=== PATIENT | female | born 1940 | race Caucasian/White ===

== ENCOUNTER 2017-05-17 07:26 | Emergency (ER) | payer MEDICARE, BC ==
--- NOTE | 2017-05-17 07:43 | EDM.PDOC ---
ED HPI GENERAL MEDICAL PROBLEM - General Chief Complaint: General Stated Complaint: SOMETHING IN RIGHT CHEEK Time Seen by Provider: 05/17/17 07:43 Source of Information: Reports: Patient History Limitations: Reports: No Limitations - History of Present Illness INITIAL COMMENTS - FREE TEXT/NARRATIVE: 77 yo F who presents to the ER with right cheek discomfort with radiation to the right Jaw. Patient wears Dentures and was wondering if her symptoms have something to do with her Dentures. Symptoms have been ongoing for the past 3 days. No fever, chills. Rates pain as 4/10. Tried Tylenol without any relief. She is also planning to see her Dentist but presented to the ER for further evaluation. Duration: Day(s): (for the past 3 days), Getting Worse Location: Reports: Other (inner aspect of the right cheek) Quality: Reports: Ache Improves with: Reports: None Worsens with: Reports: None Associated Symptoms: Reports: No Other Symptoms Right Lower Tooth/Teeth Pain Score (Numeric/FACES): 2 - Related Data Allergies Allergy/AdvReac Type Severity Reaction Status Date / Time atorvastatin calcium AdvReac Pain Verified 05/17/17 07:42 [From Lipitor] Home Meds: Home Meds Folic Acid 1 mg PO DAILY 01/12/15 [History] Methotrexate Sodium [Methotrexate] 15 mg PO ASDIRECTED 01/12/15 [History] Omeprazole 40 mg PO DAILY 01/12/15 [History] Alendronate [Fosamax] 70 mg PO Q7D 01/31/15 [History] Ascorbic Acid [Vitamin C] 1,000 mg PO DAILY 01/31/15 [History] Aspirin [Halfprin] 325 mg PO DAILY 01/31/15 [History] Ca/D3/Mag#11/Zinc/Unit Educator/Cruz/Bor [Caltrate 600+D Plus Tablet] 1 tab PO DAILY 01/31 [History] Calcium Polycarbophil [Fiber Tabs] 1,250 mg PO DAILY 01/31/15 [History] Carvedilol [Coreg] 25 mg PO BID 01/31/15 [History] Cholecalciferol (Vitamin D3) [Vitamin D3] 2,000 unit PO DAILY 01/31/15 [History] Lactobacillus Acidophilus [Acidophilus] 1 tab PO DAILY 01/31/15 [History] Levothyroxine [Synthroid] 100 mcg PO DAILY 01/31/15 [History] Lutein 20 mg PO DAILY 01/31/15 [History] Magnesium Amino Acid Chelate [Magnesium] 100 mg PO DAILY 01/31/15 [History] Simvastatin [Zocor] 40 mg PO DAILY 01/31/15 [History] Acetaminophen [Tylenol Arthritis Pain] 650 mg PO DAILY 12/03/15 [History] Losartan [Cozaar] 25 mg PO DAILY 12/03/15 [History] Spironolactone [Aldactone] 12.5 mg PO DAILY 12/03/15 [History] Sucralfate 1 gm PO QID 12/03/15 [History] diphenhydrAMINE [Benadryl] 25 mg PO BEDTIME PRN 12/03/15 [History] Amoxicillin 500 mg PO TID #21 tab 05/17/17 [Rx] Hydrocodone/Acetaminophen [[place] 5-325] 1 tab PO Q6H PRN #20 tablet 05/17/17 [Rx ] Past Medical History HEENT History: Reports: Impaired Vision Cardiovascular History: Reports: Arrhythmia, Automatic Implantable Cardioverter Defibrillators, Heart Failure, High Cholesterol, Hypertension, Pacemaker, SOB on Exertion Gastrointestinal History: Reports: Gastritis, GERD Musculoskeletal History: Reports: Arthritis, Osteoarthritis - Past Surgical History HEENT Surgical History: Reports: Cataract Surgery Social & Family History - Tobacco Use Smoking Status *Q: Never Smoker Years of Tobacco use: 25 - Alcohol Use Days Per Week of Alcohol Use: 1 Number of Drinks Per Day: 1 Total Drinks Per Week: 1 - Recreational Drug Use Recreational Drug Use: No ED ROS GENERAL - Review of Systems Review Of Systems: ROS reveals no pertinent complaints other than HPI. ED EXAM, GENERAL - Physical Exam Exam: See Below Exam Limited By: No Limitations General Appearance: Alert, WD/WN, No Apparent Distress Eye Exam: Bilateral Eye: EOMI Ears: Normal External Exam, Normal Canal, Hearing Grossly Normal, Normal TMs Nose: Normal Inspection, Normal Mucosa Throat/Mouth: Normal Lips, Normal Teeth, Normal Gums, Other (sore noticed on the inner aspect of the right cheek --clinically infected) Head: Atraumatic, Normocephalic Neck: Normal Inspection, Supple, Non-Tender, Full Range of Motion Respiratory/Chest: No Respiratory Distress, Lungs Clear, Normal Breath Sounds, No Accessory Muscle Use Cardiovascular: Normal Peripheral Pulses, Regular Rate, Rhythm, No Edema, No JVD , No Murmur GI/Abdominal: Normal Bowel Sounds, Soft, Non-Tender, No Organomegaly (Female) Exam: Normal External Exam, Normal Speculum Exam Rectal (Female) Exam: Normal Exam Back Exam: Normal Inspection, Full Range of Motion Extremities: Normal Inspection, Normal Range of Motion, Non-Tender, No Pedal Edema Neurological: Alert, Oriented, CN II-XII Intact, Normal Cognition, Normal Gait Skin Exam: Warm, Dry, Intact, Normal Color, No Rash Course - Vital Signs Last Recorded V/S: Last Vital Signs Temp 36.8 C 05/17/17 07:30 Pulse 72 05/17/17 07:30 Resp 20 05/17/17 07:30 BP 154/72 H 05/17/17 07:30 Pulse Ox 98 05/17/17 07:30 Departure - Departure Time of Disposition: 08:28 Disposition: Home, Self-Care 01 Condition: Good Clinical Impression: Mucositis - Discharge Information Prescriptions: Amoxicillin 500 mg PO TID #21 tab Hydrocodone/Acetaminophen [Mascot 5-325] 1 tab PO Q6H PRN #20 tablet PRN Reason: Pain Instructions: Oral Mucositis Referrals: Carrie Mcghee, HOUSING MANAGEMENT REPRESENTATIVE [Primary Care Provider] - Forms: ED Department Discharge Additional Instructions: Make appointment to see Dentist Follow with PCP Return if symptoms worsen Call your Physician or Return to Emergency Department if: * Your condition worsens in any way. * You develop fever greater than 100.4. * You have vomitting that does not stop with medications. * You have pain that is not controlled with medications.
[2017-05-17 07:48] VITALS: BP 154/72
[2017-05-17] MEDS ORDERED: Acetaminophen/HYDROcodone 325-5 MG Tab PO ONE (08:05)
[2017-05-17] MEDS ORDERED: Amoxicillin 500 MG Cap PO ONE (08:05)
== END 2017-05-17 08:10 | disposition home or self-care (01) ==
LOC: FB.ED 07:26
DX: K12.30 Oral mucositis (ulcerative), unspecified (principal); I10 Essential (primary) hypertension; K21.9 Gastro-esophageal reflux disease without esophagitis; H54.7 Unspecified visual loss; Z88.9 Allergy status to unspecified drugs, medicaments and biological substances; Z98.890 Other specified postprocedural states; Z79.82 Long term (current) use of aspirin; Z79.899 Other long term (current) drug therapy; Z95.0 Presence of cardiac pacemaker; Z98.49 Cataract extraction status, unspecified eye
CPT/HCPCS: 99282; A9270; 99283

== ENCOUNTER 2018-08-02 09:45 | Emergency (ER) | payer MEDICARE, BC ==
[2018-08-02 10:15] VITALS: BP 144/80
--- NOTE | 2018-08-02 10:44 | EDM.PDOC ---
ED HPI GENERAL MEDICAL PROBLEM - General Chief Complaint: Neuro Symptoms/Deficits Stated Complaint: LT EAR PAIN Time Seen by Provider: 08/02/18 10:42 Source of Information: Reports: Patient History Limitations: Reports: No Limitations - History of Present Illness INITIAL COMMENTS - FREE TEXT/NARRATIVE: 78-year-old female complaining of dizziness. She describes episodes of vertigo, spinning, associated decreased hearing and plugging both ears; especially the left. This started about 2 days ago insidiously. Denies any headache, nausea, vomiting. Neither does she have any chest pain or shortness of breath. About 6 weeks ago,she had a tube placed on the left ear Onset: Gradual - Related Data Allergies Allergy/AdvReac Type Severity Reaction Status Date / Time atorvastatin calcium AdvReac Pain Verified 08/02/18 10:10 [From Lipitor] Home Meds: Home Meds Folic Acid 1 mg PO DAILY 01/12/15 [History] Methotrexate Sodium [Methotrexate] 15 mg PO ASDIRECTED 01/12/15 [History] Omeprazole 40 mg PO DAILY 01/12/15 [History] Alendronate [Fosamax] 70 mg PO Q7D 01/31/15 [History] Ascorbic Acid [Vitamin C] 1,000 mg PO MOWEFR 01/31/15 [History] Aspirin [Halfprin] 81 mg PO DAILY 01/31/15 [History] Ca/D3/Mag#11/Zinc/Apparel Trimmings Sales Representative/Cruz/Bor [Caltrate 600+D Plus Tablet] 1 tab PO DAILY 01/31 [History] Calcium Polycarbophil [Fiber Tabs] 1,250 mg PO DAILY 01/31/15 [History] Lactobacillus Acidophilus [Acidophilus] 1 tab PO DAILY 01/31/15 [History] Levothyroxine [Synthroid] 100 mcg PO DAILY 01/31/15 [History] Lutein 20 mg PO DAILY 01/31/15 [History] Magnesium Amino Acid Chelate [Magnesium] 100 mg PO DAILY 01/31/15 [History] Simvastatin [Zocor] 40 mg PO DAILY 01/31/15 [History] Acetaminophen [Tylenol Arthritis Pain] 650 mg PO DAILY 12/03/15 [History] Losartan [Cozaar] 100 mg PO DAILY 12/03/15 [History] Spironolactone [Aldactone] 12.5 mg PO DAILY 12/03/15 [History] Sucralfate 1 gm PO QID 12/03/15 [History] diphenhydrAMINE [Benadryl] 25 mg PO BEDTIME PRN 12/03/15 [History] Hydrocodone/Acetaminophen [[place] 5-325] 1 tab PO Q6H PRN #20 tablet 05/17/17 [Rx ] Calcium Citrate/Vitamin D3 [Calcium Cit 200-Vit D3 250 Tab] 2 tab PO BID [History] Carvedilol 25 mg PO BID 08/02/18 [History] Cholestyramine (With Sugar) [Questran Powder] 4 gm PO 12 08/02/18 [History] Denosumab [Xgeva] 60 mg IDERM .Q6 MONTHS 08/02/18 [History] Dicyclomine [Bentyl] 10 mg PO BID PRN 08/02/18 [History] Fluticasone Propionate [Flonase] 2 puff JOSE CARLOS DAILY 08/02/18 [History] Furosemide 20 mg PO DAILY 08/02/18 [History] Hypromellose [Genteal] 1 drop EYEBOTH BID 08/02/18 [History] Past Medical History HEENT History: Reports: Impaired Vision Cardiovascular History: Reports: Arrhythmia, Automatic Implantable Cardioverter Defibrillators, Heart Failure, High Cholesterol, Hypertension, Pacemaker, SOB on Exertion Gastrointestinal History: Reports: Gastritis, GERD, Irritable Bowel Syndrome TONSORIAL ARTIST History: Reports: Other TONSORIAL ARTIST History: Musculoskeletal History: Reports: Arthritis, Fracture, Osteoarthritis, RA Other Musculoskeletal History: hx R hip Neurological History: Reports: Vertigo Endocrine/Metabolic History: Reports: Hypothyroidism - Infectious Disease History Infectious Disease History: Reports: MRSA - Past Surgical History HEENT Surgical History: Reports: Cataract Surgery Other HEENT Surgeries/Procedures: bilat cataract Cardiovascular Surgical History: Reports: Pacer GI Surgical History: Reports: Appendectomy, Cholecystectomy, Colonoscopy Female Surgical History: Reports: Section, Hysterectomy, Salpingo- Oophorectomy Other Female Surgeries/Procedures: CS x 3 Musculoskeletal Surgical History: Reports: Hip Replacement Other Musculoskeletal Surgeries/Procedures:: R hip replacement Social & Family History - Family History Family Medical History: Noncontributory - Tobacco Use Smoking Status *Q: Former Smoker Years of Tobacco use: 5 Used Tobacco, but Quit: Yes Month/Year Tobacco Last Used: 1986 - Caffeine Use Caffeine Use: Reports: Coffee, Tea - Recreational Drug Use Recreational Drug Use: No ED ROS GENERAL - Review of Systems Review Of Systems: ROS reveals no pertinent complaints other than HPI. ED EXAM, DIZZINESS - Physical Exam Exam: See Below Exam Limited By: No Limitations General Appearance: Alert Nystagmus: No: worsens with head to L Ears: Normal External Exam, TM Obscured by Cerumen, Other (Tympanostomy tube noted in the right eardrum). No: Auricular Erythema, Canal Blood, Canal Swelling Nose: Normal Inspection Throat/Mouth: Normal Inspection Head Exam: Atraumatic Vertigo: reversible Respiratory/Chest: No Respiratory Distress Cardiovascular: Normal Peripheral Pulses, Regular Rate, Rhythm Course - Vital Signs Text/Narrative:: I was able to remove some of the wax that was obscuring the TM. Last Recorded V/S: Last Vital Signs Temp 97.5 F 08/02/18 10:02 Pulse 62 08/02/18 10:02 Resp 18 08/02/18 10:02 BP 144/80 H 08/02/18 10:02 Pulse Ox 100 08/02/18 10:02 - Orders/Labs/Meds Orders: Active Orders 24 hr Category Date Time Status EKG Documentation Completion [RC] ASDIRECTED Care 08/02/18 10:41 Active EKG Documentation Completion [RC] ASDIRECTED Care 08/02/18 10:42 Active EKG 12 Lead [EK] Routine Ther 08/02/18 10:41 Ordered Labs: Laboratory Tests 08/02/18 08/02/18 08/02/18 Range/Units 10:45 10:45 10:45 WBC 6.1 (4.5-12.0) X10-3/uL RBC 4.04 (3.23-5.20) x10(6)uL Hgb 12.7 (11.5-15.5) g/dL Hct 38.5 (30.0-51.3) % MCV 95.1 (80-96) fL MCH 31.3 (27.7-33.6) pg MCHC 32.9 (32.2-35.4) g/dL RDW 14.5 (11.5-15.5) % Plt Count 239 (125-369) X10(3)uL MPV 8.0 (7.4-10.4) fL Neut % (Auto) 66.2 (46-82) % Lymph % (Auto) 21.6 (13-37) % Butts % (Auto) 7.0 (4-12) % Eos % (Auto) 5 (1.0-5.0) % Baso % (Auto) 1 (0-2) % Neut # (Auto) 4.1 (1.6-8.3) # Lymph # (Auto) 1.3 (0.6-5.0) # Butts # (Auto) 0.4 (0.0-1.3) # Eos # (Auto) 0.3 (0.0-0.8) # Baso # (Auto) 0.0 (0.0-0.2) # Sodium 138 (135-145) mmol/L Potassium 4.3 (3.5-5.3) mmol/L Chloride 101 (100-110) mmol/L Carbon Dioxide 31 (21-32) mmol/L BUN 12 (7-18) mg/dL Creatinine 0.8 (0.55-1.02) mg/dL Est Cr Clr Drug Dosing 43.73 mL/min Estimated GFR (MDRD) > 60 (>60) BUN/Creatinine Ratio 15.0 (9-20) Glucose 90 (80-116) mg/dL Calcium 8.9 (8.6-10.2) mg/dL Troponin I < 0.017 L (<0.017-0.056) ng/mL Departure - Departure Time of Disposition: 11:21 Disposition: Home, Self-Care 01 Clinical Impression: Benign paroxysmal positional vertigo of right ear - Discharge Information Referrals: Carrie Mcghee, CONSERVATION SCIENCE TEACHER [Primary Care Provider] - Forms: ED Department Discharge - Problem List & Annotations (1) Benign paroxysmal positional vertigo of right ear SNOMED Code(s): 091758151 Code(s): H81.11 - BENIGN PAROXYSMAL VERTIGO, RIGHT EAR Status: Acute Current Visit: Yes - Problem List Review Problem List Initiated/Reviewed/Updated: Yes - My Orders Last 24 Hours: My Active Orders 08/02/18 10:41 EKG Documentation Completion [RC] ASDIRECTED EKG 12 Lead [EK] Routine 08/02/18 10:42 EKG Documentation Completion [RC] ASDIRECTED - Assessment/Plan Last 24 Hours: My Active Orders 08/02/18 10:41 EKG Documentation Completion [RC] ASDIRECTED EKG 12 Lead [EK] Routine 08/02/18 10:42 EKG Documentation Completion [RC] ASDIRECTED Plan: Discharge the patient home with some meclizine 25 mg, 3 times a day when necessary. Discussed side effects. Advised to see her ENT specialist this week. Return to the ED with any worsening symptoms
[2018-08-02] MEDS ORDERED: Meclizine 25 MG Tab PO ONE (11:26)
== END 2018-08-02 11:35 | disposition home or self-care (01) ==
LOC: FB.ED 09:45
DX: H81.11 Benign paroxysmal vertigo, right ear (principal); I10 Essential (primary) hypertension; K21.9 Gastro-esophageal reflux disease without esophagitis; E03.9 Hypothyroidism, unspecified; Z87.891 Personal history of nicotine dependence; Z79.899 Other long term (current) drug therapy; Z79.82 Long term (current) use of aspirin; Z88.8 Allergy status to other drugs, medicaments and biological substances
CPT/HCPCS: 36415; 80048; 84484; 85025; 99283; A9270-GY

== ENCOUNTER 2020-05-26 16:32 | Inpatient (IN) | payer MEDICARE, BC ==
[2020-05-26] MEDS ORDERED: Morphine 10 MG/ML SDV IM ONE (16:37)
[2020-05-26] MEDS ORDERED: hydrOXYzine HCl 50 MG/ML SDV IM ONE (16:37)
[2020-05-26] MEDS ORDERED: oxyCODONE 5 MG Tab PO PRN (17:24)
--- NOTE | 2020-05-26 17:28 | EDM.PDOC ---
ED HPI GENERAL MEDICAL PROBLEM - General Chief Complaint: Lower Extremity Injury/Pain Stated Complaint: PAIN IN TAILBONE AREA Time Seen by Provider: 05/26/20 17:10 Source of Information: Reports: Patient History Limitations: Reports: No Limitations - History of Present Illness INITIAL COMMENTS - FREE TEXT/NARRATIVE: Patient complains of lower back pain,left side for a few hours.No radiation.Severe,to the point that she cannot move. Tylenol does not help. She fell 10 days ago. left hip Pain Score (Numeric/FACES): 9 - Related Data Allergies Allergy/AdvReac Type Severity Reaction Status Date / Time atorvastatin calcium AdvReac Pain Verified 10/24/18 08:04 [From Lipitor] Home Meds: Home Meds Azelastine [Astelin Nasal Soln] 1 inhalation JOSE CARLOS BID 05/26/20 [History] Calcium Carb/Magnesium Oxid/D3 [Calcium Magnesium + D] 1 each PO BID 05/26/20 [History] Denosumab [Prolia] 60 mg .XX ASDIRECTED 05/26/20 [History] Fluticasone Propionate [Flonase] 2 spray NS DAILY 05/26/20 [History] Folic Acid 1 tab PO DAILY 05/26/20 [History] Furosemide [Lasix] 20 mg PO DAILY 05/26/20 [History] Lactobac/Bifidobac/Glob Pr Con [Ultra Amarilis Plus Capsule] 1 each PO BID 05/26/20 [History] Levothyroxine 75 mcg PO ACBREAKFAST 05/26/20 [History] Loperamide [Imodium AD] 2 mg PO BEDTIME 05/26/20 [History] Losartan [Cozaar] 100 mg PO DAILY 05/26/20 [History] Lutein 20 mg PO DAILY 05/26/20 [History] Methotrexate 2.5 mg PO Q7D 05/26/20 [History] amLODIPine [Norvasc] 2.5 mg PO DAILY 05/26/20 [History] carvediloL [Coreg] 25 mg PO BID 05/26/20 [History] Past Medical History HEENT History: Reports: Impaired Vision Cardiovascular History: Reports: Arrhythmia, Automatic Implantable Cardioverter Defibrillators, Heart Failure, High Cholesterol, Hypertension, Pacemaker, SOB on Exertion Gastrointestinal History: Reports: Diverticulosis, Gastritis, GERD, Irritable Bowel Syndrome COUNTY RECORDS MANAGEMENT OFFICER History: Reports: Other COUNTY RECORDS MANAGEMENT OFFICER History: Musculoskeletal History: Reports: Arthritis, Fracture, Osteoarthritis, RA Other Musculoskeletal History: hx R hip Neurological History: Reports: Vertigo Endocrine/Metabolic History: Reports: Hypothyroidism - Infectious Disease History Infectious Disease History: Reports: MRSA - Past Surgical History HEENT Surgical History: Reports: Cataract Surgery Other HEENT Surgeries/Procedures: bilat cataract Cardiovascular Surgical History: Reports: AICD, Pacer GI Surgical History: Reports: Appendectomy, Cholecystectomy, Colonoscopy Female Surgical History: Reports: Section, Hysterectomy, Salpingo- Oophorectomy Other Female Surgeries/Procedures: CS x 3 Musculoskeletal Surgical History: Reports: Hip Replacement Other Musculoskeletal Surgeries/Procedures:: R hip replacement Social & Family History - Family History Family Medical History: Noncontributory - Tobacco Use Smoking Status *Q: Former Smoker Used Tobacco, but Quit: Yes Month/Year Tobacco Last Used: 1989 - Caffeine Use Caffeine Use: Reports: Coffee Review of Systems - Review of Systems Review Of Systems: Comprehensive ROS is negative, except as noted in HPI. ED EXAM, GENERAL - Physical Exam Exam: See Below Exam Limited By: No Limitations General Appearance: Alert Head: Atraumatic Neck: Normal Inspection Cardiovascular: Normal Peripheral Pulses Back Exam: Normal Inspection, Muscle Spasm, Paraspinal Tenderness. No: Vertebral Tenderness Extremities: Normal Inspection Course - Vital Signs Last Recorded V/S: Last Vital Signs Temp 97.9 F 05/26/20 18:11 Pulse 64 05/26/20 18:11 Resp 18 05/26/20 18:11 BP 139/60 05/26/20 18:11 Pulse Ox 94 L 05/26/20 18:11 - Orders/Labs/Meds Orders: Medication Orders Cyclobenzaprine HCl (Flexeril) 10 mg PO BEDTIME KEITH Naproxen (Naprosyn) 500 mg PO BID [facility] Last Admin: 05/26/20 18:46 Dose: 500 mg Documented by: NAS Oxycodone HCl (Oxycodone) 5 mg PO Q4H PRN PRN Reason: Breakthrough Pain Meds: Medications Generic Name Dose Route Start Last Admin Trade Name Freq PRN Reason Stop Dose Admin Cyclobenzaprine HCl 10 mg 05/26/20 21:00 Flexeril PO BEDTIME KEITH Naproxen 500 mg 05/26/20 17:30 05/26/20 18:46 Naprosyn PO 500 mg BID KEITH Administration Oxycodone HCl 5 mg 05/26/20 17:24 Oxycodone PO Q4H PRN Breakthrough Pain Discontinued Medications Generic Name Dose Route Start Last Admin Trade Name Idania PRN Reason Stop Dose Admin Hydroxyzine HCl 50 mg 05/26/20 16:37 05/26/20 16:47 Vistaril IM 05/26/20 16:38 50 mg ONETIME ONE Administration Morphine Sulfate 10 mg 05/26/20 16:37 05/26/20 16:47 Morphine IM 05/26/20 16:38 10 mg ONETIME ONE Administration Departure - Departure Time of Disposition: 20:08 Disposition: Refer to Observation Condition: Good Clinical Impression: Muscle spasms of neck - Discharge Information Sepsis Event Note (ED) - Evaluation Sepsis Screening Result: No Definite Risk - Focused Exam Vital Signs: Vital Signs Temp Pulse Resp BP Pulse Ox 05/26/20 16:32 98.1 F 73 17 126/102 H 99 - Problem List & Annotations (1) Back muscle spasm SNOMED Code(s): 853397761 Code(s): M62.830 - MUSCLE SPASM OF BACK Status: Acute Current Visit: Yes - Problem List Review Problem List Initiated/Reviewed/Updated: Yes - Assessment/Plan Plan: Admit for pain control. PT. She lives alone
[2020-05-26] MEDS: Naproxen 500 MG Tab PO SCH (18:46)
[2020-05-26] MEDS ORDERED: Denosumab 60 MG/1 ML Syringe SCH (20:30)
[2020-05-26] MEDS ORDERED: Cyclobenzaprine 10 MG Tab PO SCH (21:00)
[2020-05-26] MEDS: Loperamide 2 MG Cap PO SCH (21:34)
[2020-05-26] MEDS: Carvedilol 25 MG Tab PO SCH (21:34)
[2020-05-27] MEDS ORDERED: Folic Acid 1 MG Tab PO SCH (09:00)
[2020-05-27] MEDS ORDERED: Furosemide 20 MG Tab PO SCH (09:00)
[2020-05-27] MEDS: Levothyroxine 75 MCG Tab PO SCH (11:00)
[2020-05-27] MEDS: Carvedilol 25 MG Tab PO SCH ×2 (11:00→17:00)
[2020-05-27] MEDS: Enoxaparin 30 MG/0.3 ML Syringe SUBCUT SCH (11:01)
[2020-05-27] MEDS: Naproxen 500 MG Tab PO SCH ×2 (11:01→21:31)
[2020-05-27] MEDS: Fluticasone Propionate Nasal Spray 16 GM Bottle NAS SCH (11:05)
--- NOTE | 2020-05-27 11:29 | PN ---
DATE SEEN: 05/27/2020 SUBJECTIVE: Hip and pelvis . Nayely Barnes is a young lady, 80 years of age, admitted yesterday through the ER. Radiographs were evaluated by Radiology in [place], was found not to have any obvious left hip pathology, but evidence of an acetabular fracture on the right side. I spoke with Dr. Nicole, Orthopedics, [facility], recommended 6 weeks nonweightbearing, and conservative treatment. Re-x-ray in few weeks' time, look for changes in anatomy. She was informed of these findings and needs. PHYSICAL EXAMINATION: VITAL SIGNS: 36.5, 68, 123/70, 87 mean, 18, 92%. GENERAL: Appears comfortable. CHEST: Clear all lung to. HEART: No ectopy or murmur. ABDOMEN: Benign. PELVIS: Moderately tender over pelvic motion. ASSESSMENT: Right acetabular fracture. PLAN: PT referral on Thursday, nonweightbearing 6 weeks' duration. Home care and treatment options. /[id number] KAT/KIRA
[2020-05-27] MEDS: amLODIPine 2.5 MG Tab PO SCH (11:31)
[2020-05-27] MEDS: Losartan 100 MG Tab PO SCH (11:31)
[2020-05-27] MEDS: Carboxymethylcellulose/Hypromellose Ophth Gel 15 ML Bottle EYEBOTH SCH ×2 (11:34→21:31)
[2020-05-27] MEDS: [UNRECOGNIZED DRUG - OTHER] PO SCH (11:54)
[2020-05-27] MEDS: AZELASTINE NAS SCH (11:54)
[2020-05-27] MEDS: Acetaminophen 500 MG Tab PO SCH ×2 (13:17→21:31)
[2020-05-27] MEDS: Loperamide 2 MG Cap PO SCH (21:31)
[2020-05-28] MEDS: Levothyroxine 75 MCG Tab PO SCH (08:13)
[2020-05-28] MEDS: Carvedilol 25 MG Tab PO SCH ×2 (08:43→17:15)
[2020-05-28] MEDS: Losartan 100 MG Tab PO SCH (08:45)
[2020-05-28] MEDS: Acetaminophen 500 MG Tab PO SCH ×3 (08:45→21:04)
[2020-05-28] MEDS: Naproxen 500 MG Tab PO SCH ×2 (08:45→21:03)
[2020-05-28] MEDS: Fluticasone Propionate Nasal Spray 16 GM Bottle NAS SCH (08:46)
[2020-05-28] MEDS ORDERED: Methotrexate 2.5 MG Tab PO SCH (09:00)
[2020-05-28] MEDS: amLODIPine 2.5 MG Tab PO SCH (09:24)
[2020-05-28] MEDS: traMADol 50 MG Tab PO PRN ×2 (09:27→21:04)
[2020-05-28] MEDS: Enoxaparin 30 MG/0.3 ML Syringe SUBCUT SCH (09:29)
[2020-05-28] MEDS: Calcium Carbonate 500 MG Tablet PO SCH ×2 (11:17→21:03)
--- NOTE | 2020-05-28 14:12 | HP ---
ADMISSION DATE: 05/27/2020 REASON FOR VISIT: Acute hip and back pain. HISTORY OF PRESENT ILLNESS: Nayely Barnes is an 80-year-old female, lives independently, was admitted through [facility]. She had taken a fall a few days prior. She had lost her balance in her garage. She has had some other small minimal falls. She presented with complicated pelvic pain. Was seen in the emergency room, suspicion for fracture was noted, radiographs revealed evidence of an acetabular fracture, minimal displacement, right hip. Admitted to hospital for treatment, intervention, and pain control. MEDICATIONS: At the time of admission include: 1. Simvastatin 20 mg p.o. at bedtime, hyperlipidemia. 2. Methotrexate 15 mg q.7 days. 3. Flonase 2 puffs each nostril once daily, allergic rhinitis. 4. Carvedilol 25 mg 1 p.o. b.i.d., blood pressure/heart. 5. Lutein 20 mg 1 p.o. daily nutrition. 6. Losartan 100 mg 1 p.o. daily, blood pressure. 7. Imodium A-D 2 mg at bedtime, diarrhea. 8. Levothyroxine 75 mcg, hypothyroidism. 9. Amarilis Plus 1 capsule b.i.d. 10.Furosemide 20 mg 1 p.o. daily, edema. 11.Folic acid 1 mg 1 p.o. daily, nutrition. 12.Prolia 60 mg q.6 months, osteoporosis. 13.Calcium plus vitamin D 1 p.o. b.i.d. 14.Amlodipine 2.5 mg daily. 15.Astelin nasal spray 1 puff b.i.d. both nostrils. ALLERGIES: To Lipitor with pain. PAST MEDICAL HISTORY: Significant for previous right hip arthroplasty for degenerative joint disease. She has had a previous pacemaker and defibrillator placed 2004, and initial hip replacement 1999, revision 2017. Dr. Dubois, initial provider. Dr. Lemons, second provider. She had an appendectomy, cholecystectomy, 3 sections, herniorrhaphy, hysterectomy, and bilateral oophorectomy. Chronic illnesses include heart disease, hypertension, and hyperlipidemia. SOCIAL HISTORY: for 18 years. at 71 of heart disease. Lives independently. Worked at [employer]. Three children, 2 boys, 1 daughter, 5 grandchildren, 5 great grandchildren. Quit smoking in 1999, no vaping, no chewing, no alcohol of consequence, no illicit drug use. REVIEW OF SYSTEMS: CONSTITUTIONAL: Feeling otherwise generally well. EYES: Sees well. EARS: Hears well, some difficulty in crowds. OROPHARYNX: Intact dentition. GASTROINTESTINAL: Bowels have been fine. No blood in stools. GENITOURINARY: Good voiding pattern. No blood in urine. CARDIOVASCULAR: Denies chest pain, palpitations, syncope. RESPIRATORY: No chronic cough, wheeze, or congestion. ORTHOPEDIC: Please see HPI. SKIN: No open sores or lesions. ENDOCRINE: No excessive thirst or urination. ALLERGIES: Noted. PHYSICAL EXAMINATION: VITAL SIGNS: 1.6 m, 56 kg, 68, 123/70, 87 mean, 94, respirations 18. GENERAL: Elderly female, cooperative, conversant, gives good history. HEENT: Funduscopic benign. Bright TMs. Clear nasal discharge. Mouth and oropharynx clear. NECK: Benign. Thyroid small. CHEST: On auscultation, clear in all lung to. HEART: Occasional ectopy, soft murmur. Normal S1, S2. ABDOMEN: Benign, well-healed surgical scars. No hepatosplenomegaly. Midline aorta small. GENITOURINARY AND RECTAL: Deferred. EXTREMITIES: Well perfused. Palpable tenderness over both sides of her pelvis. Surgical scar noted, right side. LABORATORY STUDIES: Hemoglobin 10.2, white count 7,700, sedimentation rate 63, platelets 249,000. Electrolytes; glucose 131, calcium 8.5, GFR greater than 60. Urinalysis noted 2+ ketones, small leukocytes, 0 to 5 white cells. Radiographs pending. ASSESSMENT: Hip and pelvis pain. PLAN: We will have radiologist review findings and concerns. Pain control, intervention accordingly. /[id number] KAT/KIRA
[2020-05-28] MEDS: Loperamide 2 MG Cap PO SCH (21:03)
[2020-05-28] MEDS: Carboxymethylcellulose Sodium 1% Ophth Gel 15 ML Bottle EYEBOTH SCH (21:03)
--- NOTE | 2020-05-28 23:03 | PN ---
DATE SEEN: 05/28/2020 SUBJECTIVE: Nayely Barnes is a delightful 80-year-old female admitted with recent fall. She sustained an acetabular fracture, undisplaced periprosthesis right hip. Surprising little pain in that location. Spoke with Dr. Nicole, Orthopedics, [place]. 6 weeks nonweightbearing. Plans accordingly. PT will see her today. Discharge planning with services at home under consideration. Feels that the Tylenol on board provides reasonable but not full control of pain. OBJECTIVE: VITAL SIGNS: 36.3, 129/72, 18, 95%, blood pressure 126/68. GENERAL: Appears comfortable. NECK: Benign. Thyroid small. CHEST: On auscultation, clear in all lung to. HEART: No ectopy. Soft murmur. ABDOMEN: Benign. Some pelvic pain on palpation. ASSESSMENT: Acetabular fracture, right hip periprosthesis. PLAN: PT on board. Treatment in place. Discharge planning or swing bed alternative. /[id number] KAT/KIRA
[2020-05-29] MEDS: traMADol 50 MG Tab PO PRN ×2 (02:32→08:40)
[2020-05-29] MEDS: Levothyroxine 75 MCG Tab PO SCH (06:41)
[2020-05-29] MEDS: Carvedilol 25 MG Tab PO SCH ×2 (08:29→18:10)
[2020-05-29] MEDS: Naproxen 500 MG Tab PO SCH ×2 (08:30→21:26)
[2020-05-29] MEDS: Fluticasone Propionate Nasal Spray 16 GM Bottle NAS SCH (08:31)
[2020-05-29] MEDS: Calcium Carbonate 500 MG Tablet PO SCH ×2 (08:31→21:26)
[2020-05-29] MEDS: amLODIPine 2.5 MG Tab PO SCH (08:33)
[2020-05-29] MEDS: Acetaminophen 500 MG Tab PO SCH ×3 (08:34→21:26)
[2020-05-29] MEDS: Losartan 100 MG Tab PO SCH (08:34)
[2020-05-29] MEDS: Enoxaparin 30 MG/0.3 ML Syringe SUBCUT SCH (10:06)
[2020-05-29] MEDS: traMADol 50 MG Tab PO SCH ×2 (13:29→21:26)
[2020-05-29] MEDS: Loperamide 2 MG Cap PO SCH (21:26)
[2020-05-29] MEDS: Carboxymethylcellulose Sodium 1% Ophth Gel 15 ML Bottle EYEBOTH SCH (21:27)
[2020-05-30] MEDS: Levothyroxine 75 MCG Tab PO SCH (07:31)
[2020-05-30] MEDS: Carvedilol 25 MG Tab PO SCH (07:32)
[2020-05-30 07:33] VITALS: BP 155/78; PULSE 62
[2020-05-30] MEDS ORDERED: Acetaminophen 500 MG Tab PO SCH (09:00)
[2020-05-30] MEDS: traMADol 50 MG Tab PO SCH (09:30)
[2020-05-30] MEDS: Calcium Carbonate 500 MG Tablet PO SCH (09:34)
[2020-05-30] MEDS: amLODIPine 2.5 MG Tab PO SCH (09:34)
[2020-05-30] MEDS: Acetaminophen 500 MG Tab PO SCH (09:34)
[2020-05-30] MEDS: Losartan 100 MG Tab PO SCH (09:35)
[2020-05-30] MEDS: Fluticasone Propionate Nasal Spray 16 GM Bottle NAS SCH (09:36)
[2020-05-30] MEDS: Enoxaparin 30 MG/0.3 ML Syringe SUBCUT SCH (09:37)
--- NOTE | 2020-05-30 11:24 | PN ---
DATE SEEN: 05/30/2020 SUBJECTIVE: Nayely Barnes is an 80-year-old female admitted with right hip periprosthesis, intra-acetabular fracture, right hip. CT confirmed these findings. Primary issues are left side intractable pain by report. Severe in nature. Known SI disease. An epidural steroid injection remotely in the past, 5 to 8 years ago, with some benefit. The pain is a problematic issue. Nonweightbearing for 6 weeks. PHYSICAL EXAMINATION: GENERAL: Weepy, unsettled at best. VITAL SIGNS: 36.3, 62, 155/78, 18, and 96%. CHEST: Clear in all lung to. HEART: Without ectopy or murmur. ABDOMEN: Benign. ASSESSMENT: 1. Tenderness over the hip and pelvis girdle. 2. Intra-articular acetabular fracture, right hip. 3. Complicated left hip and back pain. PLAN: PT to focus on her left side sciatica and intervention. We will speak with Anesthesia about an epidural steroid injection as a consideration. /[id number] /KIRA
[2020-05-30] MEDS ORDERED: predniSONE 20 MG Tab PO SCH (12:00)
--- NOTE | 2020-05-30 12:52 | DISCH ---
DISCHARGE DATE: 05/30/2020 DISCHARGE DIAGNOSIS: Acetabular fracture, periprosthesis, right hip. HISTORY OF PRESENT ILLNESS: Shanique Barnes is an 80-year-old female admitted with fall issues and injuries implicated. Though pain is not so much directed to the right side, she has intra-articular fracture. Please see history and physical. HOSPITAL STAY: Admitted for pain control and hip and pelvis pain. Pain primarily left-sided, though fracture confirmed by plain film and CT scan on the right. PT was involved. Orthopedics, Dr. Nicole, recommended nonweightbearing for 6 weeks and followup x- ray in 2 weeks' time. The pain appears to be controlled with tramadol and Tylenol. Physical therapy and follow up. Epidural steroid injections no longer available locally. PHYSICAL EXAMINATION: VITAL SIGNS: Stable. GENERAL: Moderately comfortable. HEENT: Unremarkable. NECK: Supple. Thyroid small. CHEST: Clear in all lung to. HEART: No ectopy or murmur. ABDOMEN: Benign. ASSESSMENT: General pelvic pain. PLAN: Swing bed stay, cooperative care and well-being intervention and treatment. SURGICAL PROCEDURES: None. CONSULTATION: None. 30-minute discharge planning and care. /[id number] KAT/KIRA
== END 2020-05-30 09:59 | disposition swing bed (61) | DRG 536 ==
LOC: FB.ED 16:32 → FB.MS 17:24 → OBSVTOIN 05-27 09:46
PROVIDERS: ADMIT Family Medicine; ATTEND Family Medicine
DX: S32.401A Unspecified fracture of right acetabulum, initial encounter for closed fracture (principal); M97.01XA Periprosthetic fracture around internal prosthetic right hip joint, initial encounter; I10 Essential (primary) hypertension; E78.5 Hyperlipidemia, unspecified; H54.7 Unspecified visual loss; K21.9 Gastro-esophageal reflux disease without esophagitis; K29.70 Gastritis, unspecified, without bleeding; M16.11 Unilateral primary osteoarthritis, right hip; E03.9 Hypothyroidism, unspecified; I11.0 Hypertensive heart disease with heart failure; I50.9 Heart failure, unspecified; E78.00 Pure hypercholesterolemia, unspecified; M62.830 Muscle spasm of back; Z96.641 Presence of right artificial hip joint; K57.90 Diverticulosis of intestine, part unspecified, without perforation or abscess without bleeding; W18.39XA Other fall on same level, initial encounter; Z98.41 Cataract extraction status, right eye; Z87.891 Personal history of nicotine dependence; Z79.890 Hormone replacement therapy; Z79.899 Other long term (current) drug therapy; K58.9 Irritable bowel syndrome, unspecified; Z91.81 History of falling; Z79.02 Long term (current) use of antithrombotics/antiplatelets; Z95.810 Presence of automatic (implantable) cardiac defibrillator; Z90.722 Acquired absence of ovaries, bilateral; Z90.79 Acquired absence of other genital organ(s); Z88.8 Allergy status to other drugs, medicaments and biological substances; Z90.49 Acquired absence of other specified parts of digestive tract; Z90.710 Acquired absence of both cervix and uterus; Z98.42 Cataract extraction status, left eye; Z86.14 Personal history of Methicillin resistant Staphylococcus aureus infection
CPT/HCPCS: 36415; 72100; 73502; 80053; 81001; 85027; 85651; 96372 ×2; 99283; 99284; A9270 ×7; J2270; J3410; 72192; 97162-GP; 97165-GO; 97530-GO; 97530-GP; 97535-GO; 97542-GO; G0378; J1650; J8610

== ENCOUNTER 2020-05-30 10:00 | Inpatient (IN) | payer MEDICARE, BC ==
[2020-05-30] MEDS ORDERED: fentaNYL 12 MCG/HR Transdermal Patch TRDERM SCH ×2 (12:15→14:15)
[2020-05-30] MEDS: Acetaminophen 500 MG Tab PO SCH ×2 (14:06→21:01)
[2020-05-30] MEDS: Carvedilol 25 MG Tab PO SCH (17:45)
[2020-05-30] MEDS: Simvastatin 20 MG Tab PO SCH (21:01)
[2020-05-30] MEDS: Calcium Carbonate 500 MG Tablet PO SCH (21:01)
[2020-05-30] MEDS: Carboxymethylcellulose Sodium 1% Ophth Gel 15 ML Bottle EYEBOTH SCH (21:01)
[2020-05-31] MEDS: Levothyroxine 75 MCG Tab PO SCH (06:40)
[2020-05-31] MEDS: Carvedilol 25 MG Tab PO SCH ×2 (08:05→18:11)
[2020-05-31] MEDS: predniSONE 20 MG Tab PO SCH (08:06)
[2020-05-31] MEDS: Fluticasone Propionate Nasal Spray 16 GM Bottle NAS SCH (08:06)
[2020-05-31] MEDS: Losartan 100 MG Tab PO SCH (08:06)
[2020-05-31] MEDS: amLODIPine 2.5 MG Tab PO SCH (08:07)
[2020-05-31] MEDS: Folic Acid 1 MG Tab PO SCH (08:07)
[2020-05-31] MEDS: Furosemide 20 MG Tab PO SCH (08:07)
[2020-05-31] MEDS: Acetaminophen 500 MG Tab PO SCH ×3 (08:08→20:20)
[2020-05-31] MEDS: Calcium Carbonate 500 MG Tablet PO SCH ×2 (08:08→20:19)
[2020-05-31] MEDS: Enoxaparin 30 MG/0.3 ML Syringe SUBCUT SCH (11:00)
--- NOTE | 2020-05-31 11:29 | PN ---
DATE SEEN: 05/31/2020 SUBJECTIVE: Nayely Barnes is an 80-year-old female admitted with fall and resultant right acetabular fracture, periprosthesis. Has been reviewed by Dr. Nicole, felt nonweightbearing for 6 weeks. Plain films confirmed, CT confirmed. Continues to have disabling and troublesome complicated right buttocks, SI joint, and hip pain, etiology undetermined. Radiographs and CT of that area in question showed nothing problematic on that side. We will plan for CT of her lumbar spine. MRI not doable due to pacemaker in place. Pain is controlled with Tylenol and a Duragesic patch. Pain is increasingly troublesome. OBJECTIVE: VITAL SIGNS: 35.6, 68, 160/81, 18. GENERAL: Comfortable and appropriate. Pain noted. NECK: Benign. Thyroid small. CHEST: Clear in all lung to. No adventitious sounds. HEART: No ectopy or murmur. ABDOMEN: Benign. Tender again over the left buttocks region. ASSESSMENT: Peculiar hip and buttocks pain. PLAN: CT of the lumbar spine. Plans and treatment as appropriate. Analgesics adjusted accordingly. Pain shows no resolution. We need to transfer to [place] for diagnostic and orthopedic intervention. /[id number] KAT/KIRA
[2020-05-31] MEDS: Gabapentin 100 MG Cap PO SCH ×2 (13:49→20:19)
[2020-05-31] MEDS ORDERED: Lidocaine 5% 700 MG Patch TOP ONE (14:00)
[2020-05-31] MEDS: Remove Patch FENTANYL PATCH TRDERM SCH ×2 (14:34→18:10)
[2020-05-31] MEDS: Ondansetron 4 MG Tab.DIS PO PRN (17:06)
[2020-05-31] MEDS: fentaNYL 25 MCG/HR Transdermal Patch TRDERM SCH (18:10)
[2020-05-31] MEDS: Carboxymethylcellulose Sodium 1% Ophth Gel 15 ML Bottle EYEBOTH SCH (20:19)
[2020-05-31] MEDS: Simvastatin 20 MG Tab PO SCH (20:20)
[2020-06-01] MEDS ORDERED: Ketorolac 30 MG/ML SDV IM ONE (02:33)
[2020-06-01] MEDS ORDERED: Ketorolac 15 MG/ML SDV IM ONE (02:49)
[2020-06-01] MEDS: Levothyroxine 75 MCG Tab PO SCH ×2 (05:46→08:34)
[2020-06-01] MEDS: Ondansetron 4 MG Tab.DIS PO PRN (08:35)
[2020-06-01] MEDS: predniSONE 20 MG Tab PO SCH (08:37)
[2020-06-01] MEDS: Carvedilol 25 MG Tab PO SCH ×2 (08:37→16:59)
[2020-06-01] MEDS: Losartan 100 MG Tab PO SCH (08:38)
[2020-06-01] MEDS: Fluticasone Propionate Nasal Spray 16 GM Bottle NAS SCH (08:38)
[2020-06-01] MEDS: Folic Acid 1 MG Tab PO SCH (08:38)
[2020-06-01] MEDS: Furosemide 20 MG Tab PO SCH (08:39)
[2020-06-01] MEDS: amLODIPine 2.5 MG Tab PO SCH (08:41)
[2020-06-01] MEDS: Lidocaine 5% 700 MG Patch TRDERM SCH (08:41)
[2020-06-01] MEDS: Acetaminophen 500 MG Tab PO SCH ×3 (08:42→21:22)
[2020-06-01] MEDS: Calcium Carbonate 500 MG Tablet PO SCH ×2 (08:42→21:22)
[2020-06-01] MEDS: Gabapentin 100 MG Cap PO SCH ×3 (08:44→21:22)
[2020-06-01] MEDS: Naproxen 500 MG Tab PO SCH ×2 (09:01→21:21)
[2020-06-01] MEDS: Enoxaparin 30 MG/0.3 ML Syringe SUBCUT SCH (10:00)
[2020-06-01] MEDS: Carboxymethylcellulose Sodium 1% Ophth Gel 15 ML Bottle EYEBOTH SCH (21:22)
[2020-06-01] MEDS: Simvastatin 20 MG Tab PO SCH (21:22)
[2020-06-01] MEDS: oxyCODONE 5 MG Tab PO PRN (22:19)
[2020-06-02] MEDS: Levothyroxine 75 MCG Tab PO SCH (06:50)
[2020-06-02] MEDS: Carvedilol 25 MG Tab PO SCH ×2 (09:39→18:12)
[2020-06-02] MEDS: Fluticasone Propionate Nasal Spray 16 GM Bottle NAS SCH (09:41)
[2020-06-02] MEDS: Folic Acid 1 MG Tab PO SCH (09:42)
[2020-06-02] MEDS: Losartan 100 MG Tab PO SCH (09:42)
[2020-06-02] MEDS: Calcium Carbonate 500 MG Tablet PO SCH ×2 (09:43→21:27)
[2020-06-02] MEDS: Naproxen 500 MG Tab PO SCH ×2 (09:43→21:27)
[2020-06-02] MEDS: amLODIPine 2.5 MG Tab PO SCH (09:43)
[2020-06-02] MEDS: Furosemide 20 MG Tab PO SCH (09:43)
[2020-06-02] MEDS: Acetaminophen 500 MG Tab PO SCH ×3 (09:43→21:27)
[2020-06-02] MEDS: Enoxaparin 30 MG/0.3 ML Syringe SUBCUT SCH (09:46)
[2020-06-02] MEDS: Lidocaine 5% 700 MG Patch TRDERM SCH (09:47)
[2020-06-02] MEDS: Gabapentin 100 MG Cap PO SCH ×3 (09:52→21:27)
[2020-06-02] MEDS: Simvastatin 20 MG Tab PO SCH (21:27)
[2020-06-02] MEDS: oxyCODONE 5 MG Tab PO PRN (21:27)
[2020-06-02] MEDS: Carboxymethylcellulose Sodium 1% Ophth Gel 15 ML Bottle EYEBOTH SCH (21:27)
[2020-06-03] MEDS: Levothyroxine 75 MCG Tab PO SCH (06:44)
[2020-06-03] MEDS: Carvedilol 25 MG Tab PO SCH ×2 (08:33→18:25)
[2020-06-03] MEDS: Losartan 100 MG Tab PO SCH (08:33)
[2020-06-03] MEDS: Fluticasone Propionate Nasal Spray 16 GM Bottle NAS SCH (08:34)
[2020-06-03] MEDS: Folic Acid 1 MG Tab PO SCH (08:34)
[2020-06-03] MEDS: Furosemide 20 MG Tab PO SCH (08:34)
[2020-06-03] MEDS: Calcium Carbonate 500 MG Tablet PO SCH ×2 (08:35→21:12)
[2020-06-03] MEDS: amLODIPine 2.5 MG Tab PO SCH (08:35)
[2020-06-03] MEDS: Naproxen 500 MG Tab PO SCH ×2 (08:35→21:12)
[2020-06-03] MEDS: Acetaminophen 500 MG Tab PO SCH ×3 (08:36→21:12)
[2020-06-03] MEDS: Lidocaine 5% 700 MG Patch TRDERM SCH (08:37)
[2020-06-03] MEDS: oxyCODONE 5 MG Tab PO PRN ×2 (08:45→23:53)
[2020-06-03] MEDS: Gabapentin 300 MG Cap PO SCH ×3 (10:03→21:36)
[2020-06-03] MEDS: Docusate Sodium 100 MG Cap PO SCH ×2 (10:03→21:36)
[2020-06-03] MEDS: Enoxaparin 30 MG/0.3 ML Syringe SUBCUT SCH (10:04)
[2020-06-03] MEDS: fentaNYL 25 MCG/HR Transdermal Patch TRDERM SCH (13:59)
[2020-06-03] MEDS: Remove Patch FENTANYL PATCH TRDERM SCH (14:02)
[2020-06-03] MEDS: Aluminum Hydroxide/Magnesium Hydroxide Susp 30 ML Cup PO PRN ×2 (15:50→19:05)
[2020-06-03] MEDS: Simvastatin 20 MG Tab PO SCH (21:12)
[2020-06-03] MEDS: Carboxymethylcellulose Sodium 1% Ophth Gel 15 ML Bottle EYEBOTH SCH (21:13)
[2020-06-03] MEDS ORDERED: Docusate Sodium 100 MG Cap ONE (21:27)
[2020-06-04] MEDS ORDERED: Pantoprazole 40 MG Tab.CR PO SCH (06:00)
[2020-06-04] MEDS: Levothyroxine 75 MCG Tab PO SCH (07:07)
[2020-06-04] MEDS: Ondansetron 4 MG Tab.DIS PO PRN (08:10)
[2020-06-04] MEDS ORDERED: Sodium Phosphate,Monobasic/Sodium Phosphate,Dibasic Enema 133 ML Bottle RECTAL ONE (08:30)
[2020-06-04] MEDS: Calcium Carbonate 500 MG Tablet PO SCH (08:52)
[2020-06-04] MEDS: Fluticasone Propionate Nasal Spray 16 GM Bottle NAS SCH (08:52)
[2020-06-04] MEDS: Naproxen 500 MG Tab PO SCH (08:52)
[2020-06-04] MEDS: Acetaminophen 500 MG Tab PO SCH (08:52)
[2020-06-04] MEDS: Folic Acid 1 MG Tab PO SCH (08:52)
[2020-06-04] MEDS: Lidocaine 5% 700 MG Patch TRDERM SCH (08:53)
[2020-06-04] MEDS: Losartan 100 MG Tab PO SCH (08:56)
[2020-06-04] MEDS: amLODIPine 2.5 MG Tab PO SCH (08:56)
[2020-06-04] MEDS: Carvedilol 25 MG Tab PO SCH (08:56)
[2020-06-04] MEDS: Furosemide 20 MG Tab PO SCH (08:56)
[2020-06-04] MEDS: Enoxaparin 30 MG/0.3 ML Syringe SUBCUT SCH (08:59)
[2020-06-04] MEDS ORDERED: Methotrexate 2.5 MG Tab PO SCH (09:00)
[2020-06-04] MEDS: Gabapentin 300 MG Cap PO SCH (09:04)
[2020-06-04] MEDS: Docusate Sodium 100 MG Cap PO SCH (09:04)
[2020-06-04] MEDS ORDERED: Sodium Chloride 0.9% 1,000 ML IV ONE (12:35)
[2020-06-04] MEDS ORDERED: cefTRIAXone 2 GM Vial IVPUSH SCH (13:00)
[2020-06-04] MEDS ORDERED: Saccharomyces Boulardii (Probiotic) 250 MG Cap PO SCH (13:00)
[2020-06-04 13:03] VITALS: BP 76/52; PULSE 74
[2020-06-04] MEDS ORDERED: Vancomycin/Dextrose 5%-Water 200 ML IV ONE (13:15)
[2020-06-04] MEDS ORDERED: Acetaminophen 500 MG Tab PO ONE (14:00)
--- NOTE | 2020-06-04 17:11 | CR ---
INDICATION: Hypotension. CHEST, ONE VIEW: AP upright view of the chest 06/04/20 was compared with 01/31/15 and 02/09/15. The heart did not appear grossly enlarged but was somewhat prominent emphasized by poor inspiration and AP positioning. The aorta is tortuous. Overlying EKG leads are now seen bipolar type with the ventricular lead tip in the area of the apex of the right ventricle. Additional electrode is noted overlying the left ventricle. Heavy markings are noted at the left lung base which could be on the basis of a minimal pneumonia and pleuritis but should be correlated clinically. They simply may be on the basis of poor inspiration. No definite evidence of CHF is seen. IMPRESSION: No definite acute process. Study is somewhat limited by poor inspiration and AP positioning. Full inspiration PA and lateral views of the chest may be helpful for further evaluation to exclude minimal pneumonia and pleuritis at the left lung base especially. MTDD
--- NOTE | 2020-06-05 14:17 | DISCH ---
DISCHARGE DATE: 06/04/2020 REASON FOR DISCHARGE: Sepsis. BRIEF HISTORY: An 80-year-old who was admitted with an acetabular fracture to swing bed for rehab. On the morning 06/04/20, she complained of worsening pain, constipation, and vomiting, was found to have hypotension. Initial workup revealed a white cell count of 20,000 and presumptive diagnosis of sepsis was made, and as such an IV was started and normal saline given. I held all the antihypertensives. I ordered a number of tests, including x-rays of the chest and abdomen and pelvis, UA, CRP, lactic acid, BNP, and troponin. Given the situation, it was deemed that she is not a candidate for swing bed. At this time, we will transfer to the acute care to start empiric antibiotics and fluid resuscitation. /[id number] TEENA/KIRA
== END 2020-06-04 13:20 | DRG 559 ==
LOC: FB.MS 10:00
PROVIDERS: ADMIT Family Medicine; ATTEND Family Medicine
DX: S72.001D Fracture of unspecified part of neck of right femur, subsequent encounter for closed fracture with routine healing (principal); A41.9 Sepsis, unspecified organism; M97.01XA Periprosthetic fracture around internal prosthetic right hip joint, initial encounter; I95.9 Hypotension, unspecified; W19.XXXA Unspecified fall, initial encounter; M97.01XD Periprosthetic fracture around internal prosthetic right hip joint, subsequent encounter
CPT/HCPCS: 36415; 71045; 72131; 80048; 83605; 83880; 84484; 85025; 86140; 87040; 93005; 97110-GO; 97110-GP; 97530-GO; 97530-GP; A9270-GY; J1650; J1885; J7030; J7512; J8610

== ENCOUNTER 2020-06-04 13:25 | Inpatient (IN) | payer MEDICARE, BC ==
[2020-06-04] MEDS: Saccharomyces Boulardii (Probiotic) 250 MG Cap PO SCH ×2 (14:11→20:57)
[2020-06-04] MEDS ORDERED: Acetaminophen 500 MG Tab PO ONE (14:15)
[2020-06-04] MEDS ORDERED: cefTRIAXone 2 GM Vial IVPUSH SCH (14:15)
[2020-06-04] MEDS ORDERED: Vancomycin/Dextrose 5%-Water 200 ML IV ONE (14:30)
[2020-06-04] MEDS ORDERED: Ondansetron 4 MG Tab.DIS PO PRN (16:12)
[2020-06-04] MEDS ORDERED: Sodium Chloride 0.9% 1,000 ML IV ONE (16:21)
[2020-06-04] MEDS ORDERED: Denosumab 60 MG/1 ML Syringe SCH (16:45)
--- NOTE | 2020-06-04 16:48 | PCM.HP.2 ---
H&P History of Present Illness - General Date of Service: 06/04/20 Admit Problem/Dx: Admission Diagnosis/Problem Admission Diagnosis/Problem Hip pain Source of Information: Patient, RN, RN Notes Reviewed History Limitations: Reports: No Limitations - History of Present Illness Initial Comments - Free Text/Narative: Ms. Barnes is an 80-year-old female was being readmitted to acute care because of hypotension, a high white cell count, vomiting and constipation. She was admitted to swing bed for an acetabular fracture right side, and has been mostly stable until today. She was noted to be lethargic pale and hypotensive this morning. She complains of left lower quadrant abdominal pain and has had at least 2 episodes of emesis. No fevers been reported. Late in the afternoon she was hypoxic. But remains alert. She is on several medications including Duragesic patch, gabapentin to control acetabular fracture and lower back pain on the left side. She has a history of a pacemaker and ICD in place, CHF, hypertension, IBS, diverticulosis, and hip re- placement. - Related Data Allergies/Adverse Reactions: Allergies Allergy/AdvReac Type Severity Reaction Status Date / Time atorvastatin calcium AdvReac Pain Verified 10/24/18 08:04 [From Lipitor] Home Medications: Home Meds Azelastine [Astelin Nasal Soln] 1 inhalation JOSE CARLOS BID 05/26/20 [History] Calcium Carb/Magnesium Oxid/D3 [Calcium Magnesium + D] 1 each PO BID 05/26/20 [History] Carboxymethylcell/Hypromellose [GenTeal Moderate to Severe Ophth Gel] 1 drop OP BEDTIME 05/26/20 [History] Denosumab [Prolia] 60 mg .XX ASDIRECTED 05/26/20 [History] Fluticasone Propionate [Flonase] 2 spray NS DAILY 05/26/20 [History] Folic Acid 1 mg PO DAILY 05/26/20 [History] Furosemide [Lasix] 20 mg PO DAILY 05/26/20 [History] Lactobac/Bifidobac/Glob Pr Con [Ultra Amarilis Plus Capsule] 1 each PO BID 05/26/20 [History] Levothyroxine 75 mcg PO ACBREAKFAST 05/26/20 [History] Loperamide [Imodium AD] 2 mg PO BEDTIME 05/26/20 [History] Losartan [Cozaar] 100 mg PO DAILY 05/26/20 [History] Lutein 20 mg PO DAILY 05/26/20 [History] Methotrexate 15 mg PO MO 05/26/20 [History] Simvastatin 20 mg PO BEDTIME 05/26/20 [History] amLODIPine [Norvasc] 2.5 mg PO DAILY 05/26/20 [History] carvediloL [Coreg] 25 mg PO BID 05/26/20 [History] Past Medical History HEENT History: Reports: Impaired Vision Cardiovascular History: Reports: Arrhythmia, Automatic Implantable Cardioverter Defibrillators, Heart Failure, High Cholesterol, Hypertension, Pacemaker, SOB on Exertion Gastrointestinal History: Reports: Diverticulosis, Gastritis, GERD, Irritable Bowel Syndrome [employer] History: Reports: Other OB/BYN History: Musculoskeletal History: Reports: Arthritis, Fracture, Osteoarthritis, RA Other Musculoskeletal History: hx R hip Neurological History: Reports: Vertigo Endocrine/Metabolic History: Reports: Hypothyroidism - Infectious Disease History Infectious Disease History: Reports: MRSA - Past Surgical History HEENT Surgical History: Reports: Cataract Surgery Other HEENT Surgeries/Procedures: bilat cataract Cardiovascular Surgical History: Reports: AICD, Pacer GI Surgical History: Reports: Appendectomy, Cholecystectomy, Colonoscopy Female Surgical History: Reports: Section, Hysterectomy, Salpingo-Oophorectomy Other Female Surgeries/Procedures: CS x 3 Musculoskeletal Surgical History: Reports: Hip Replacement Other Musculoskeletal Surgeries/Procedures:: R hip replacement Social & Family History - Family History Family Medical History: Noncontributory - Tobacco Use Smoking Status *Q: Never Smoker Second Hand Smoke Exposure: No - Caffeine Use Caffeine Use: Reports: Coffee - Recreational Drug Use Recreational Drug Use: No H&P Review of Systems - Review of Systems: Review Of Systems: Comprehensive ROS is negative, except as noted in HPI. Exam - Exam Exam: See Below - Vital Signs Vital Signs: Last Vital Signs Temp 97.0 F 06/04/20 13:45 Pulse 71 06/04/20 13:45 Resp 18 06/04/20 13:45 BP 84/54 L 06/04/20 13:45 Pulse Ox 90 L 06/04/20 16:00 Weight: 58.513 kg - Exam Quality Assessment: Supplemental Oxygen General: Lethargic HEENT: PERRLA Neck: Supple, Trachea Midline, 2 Lungs: Clear to Auscultation, Normal Respiratory Effort Cardiovascular: Regular Rate, Regular Rhythm GI/Abdominal Exam: Normal Bowel Sounds, Soft, Distended, Tender (LLQ). No: Rebound (Female) Exam: Deferred Rectal (Female) Exam: Deferred Back Exam: Normal Inspection, Full Range of Motion, NT Extremities: Normal Inspection, Normal Range of Motion, Non-Tender, No Pedal Edema, Normal Capillary Refill Skin: Warm, Dry, Intact Neurological: Cranial Nerves Intact, Reflexes Equal Bilateral Neuro Extensive - Mental Status: Alert, Oriented x3, Normal Mood/Affect, Normal Cognition Neuro Extensive - Motor, Sensory, Reflexes: CN II-XII Intact, Normal Gait, Normal Reflexes Psychiatric: Alert, Normal Affect, Normal Mood EKG INTERPRETATION EKG Date: 06/04/20 Rhythm: NSR Sepsis Event Note - Evaluation Sepsis Screening Result: No Definite Risk Current Stage of Sepsis: Severe Sepsis Possible Source of Sepsis: Bone/Joint - Focused Exam Sepsis Event Note Statement: Focused Sepsis Exam Completed Vital Signs: Vital Signs Temp Pulse Resp BP Pulse Ox Pulse Ox 06/04/20 16:00 90 L 06/04/20 13:45 97.0 F 71 18 84/54 L 96 Date Exam was Performed: 06/04/20 Time Exam was Performed: 16:42 - Problem List (1) Sepsis associated hypotension SNOMED Code(s): 30172484 ICD Code: A41.9 - SEPSIS, UNSPECIFIED ORGANISM; I95.9 - HYPOTENSION, UNSPECIFIED Status: Acute Current Visit: Yes (2) Abdominal pain SNOMED Code(s): 60798566 ICD Code: R10.9 - UNSPECIFIED ABDOMINAL PAIN Status: Acute Current Visit: Yes Qualifiers: Abdominal location: left lower quadrant Qualified Code(s): R10.32 - Left lower quadrant pain (3) Sacroiliac joint somatic dysfunction SNOMED Code(s): 714373155560 ICD Code: M99.04 - SEGMENTAL AND SOMATIC DYSFUNCTION OF SACRAL REGION Status: Acute Current Visit: Yes (4) Hypoxia SNOMED Code(s): 248601294 ICD Code: R09.02 - HYPOXEMIA Status: Acute Current Visit: Yes (5) Diverticulosis SNOMED Code(s): 60342105 ICD Code: K57.90 - DVRTCLOS OF INTEST, PART UNSP, W/O PERF OR ABSCESS W/O BLEED Status: Acute Current Visit: No Qualifiers: Diverticulosis site: diverticulosis of large intestine (6) Hypothyroidism SNOMED Code(s): 02874512 ICD Code: E03.9 - HYPOTHYROIDISM, UNSPECIFIED Status: Acute Current Visit: No Qualifiers: Hypothyroidism type: acquired Qualified Code(s): E03.9 - Hypothyroidism, unspecified (7) Rheumatoid arthritis SNOMED Code(s): 90954487 ICD Code: M06.9 - RHEUMATOID ARTHRITIS, UNSPECIFIED Status: Acute Current Visit: No Qualifiers: Rheumatoid arthritis location: multiple sites Rheumatoid factor presence: with rheumatoid factor Qualified Code(s): M05.79 - Rheumatoid arthritis with rheumatoid factor of multiple sites without organ or systems involvement (8) Acetabulum fracture SNOMED Code(s): 33917098 ICD Code: S32.409A - UNSP FRACTURE OF UNSP ACETABULUM, INIT FOR CLOS FX Status: Acute Current Visit: Yes (9) Palliative care status SNOMED Code(s): 961588345 ICD Code: Z51.5 - ENCOUNTER FOR PALLIATIVE CARE Status: Acute Current Visit: Yes Problem List Initiated/Reviewed/Updated: Yes Orders Last 24hrs: Active Orders 24 hr Category Date Time Status Admission Status [Patient Status] [ADT] Routine ADT 06/04/20 13:20 Active Insert Urinary Catheter [OM.PC] Q24H Care 06/04/20 16:30 Ordered Oxygen Therapy [RC] ASDIRECTED Care 06/04/20 16:00 Active Urinary Catheter Assessment [RC] QSHIFT Care 06/04/20 16:21 Active Chest Abdomen Pelvis wo Cont [CT] Urgent Exams 06/04/20 16:29 Ordered BASIC METABOLIC PANEL,BMP [CHEM] AM Lab 06/05/20 05:11 Ordered C-REACTIVE PROTEIN [CHEM] AM Lab 06/05/20 05:11 Ordered CBC WITH AUTO DIFF [HEME] AM Lab 06/05/20 05:11 Ordered UA W/MICROSCOPIC [URIN] Routine Lab 06/04/20 14:20 Ordered Azelastine [Astelin Nasal Soln] Med 06/04/20 21:00 Ordered 1 inhalation JOSE CARLOS BID Carboxymethylcell/Hypromellose [GenTeal Moderate to Med 06/04/20 21:00 Ordered Severe Ophth Gel] 1 drop EYEBOTH BEDTIME Denosumab [Prolia] Med 06/04/20 16:45 Ordered 60 mg .XX ASDIRECTED Ketorolac [Toradol] Med 06/04/20 16:30 Ordered 15 mg IVPUSH Q6H PRN Levofloxacin/Dextrose 5%-Water [Levaquin in D5W 500 MG/ Med 06/04/20 16:45 Ordered 100 ML] 500 mg Premix Bag 1 bag IV Q24H Ondansetron [Zofran ODT] Med 06/04/20 16:12 Active 4 mg PO Q6H PRN Pharmacy to Dose - Vancomycin Med 06/04/20 14:15 Pending 1 dose .XX ASDIRECTED Piperacillin/Tazobactam [Zosyn] 3.375 gm Med 06/04/20 16:45 Ordered Sodium Chloride 0.9% [Normal Saline] 50 ml IV Q6H Saccharomyces Boulardii [Florastor] Med 06/04/20 14:00 Active 250 mg PO BID Sodium Chloride 0.9% [Normal Saline] 1,000 ml Med 06/04/20 16:21 Active IV .BOLUS Sodium Chloride 0.9% [Normal Saline] 1,000 ml Med 06/04/20 16:30 Ordered IV ASDIRECTED Vancomycin 750 mg Med 06/05/20 14:30 Active Sodium Chloride 0.9% [Normal Saline (AdvBag)] 250 ml IV Q24H Medication Orders Carboxymethylcellu Sod/Hypromellose (Genteal Moderate To Severe Ophth Gel) ml EYEBOTH BEDTIME KEITH Denosumab (Prolia) 60 mg .XX ASDIRECTED KEITH Vancomycin HCl 750 mg/ Sodium (Chloride) 250 mls @ 250 mls/hr IV Q24H KEITH Sodium Chloride (Normal Saline) 1,000 mls @ 999 mls/hr IV .BOLUS ONE Stop: 06/04/20 17:21 Last Admin: 06/04/20 16:30 Dose: 999 mls/hr Documented by: DIFFCAL Sodium Chloride (Normal Saline) 1,000 mls @ 150 mls/hr IV ASDIRECTED KEITH Piperacillin Sod/Tazobactam (Sod 3.375 gm/ Sodium Chloride) 50 mls @ 100 mls/hr IV Q6H KEITH Levofloxacin/Dextrose 500 mg/ (Premix) 100 mls @ 100 mls/hr IV Q24H KEITH Ketorolac Tromethamine (Toradol) 15 mg IVPUSH Q6H PRN PRN Reason: Breakthrough Pain Stop: 06/09/20 16:31 Non-Formulary Medication (Azelastine [Astelin Nasal Soln]) 1 inhalation JOSE CARLOS BID [facility] Ondansetron HCl (Zofran Odt) 4 mg PO Q6H PRN PRN Reason: Nausea/Vomiting Saccharomyces Boulardii (Florastor) 250 mg PO BID [facility] Last Admin: 06/04/20 14:11 Dose: 250 mg Documented by: MACK Vancomycin HCl (Pharmacy To Dose - Vancomycin) 1 dose .XX ASDIRECTED [facility] Assessment/Plan Comment:: We will readmit to medical surgical floor with remote telemetry. We'll obtain a CT of the chest/abdomen/pelvis, replace fluids at 150 mL/h after initial 2 L of bolus. Will supplemental oxygenation and start empiric antibiotics Zosyn,Levaquin and vancomycin. Obtain a UA and culture, along with blood cultures before initiation of antibiotics. Keep her nothing by mouth
[2020-06-04] MEDS ORDERED: Ketorolac 15 MG/ML SDV IVPUSH PRN (16:59)
[2020-06-04] MEDS ORDERED: Iopamidol 755 Mg/ML 100 ML Bottle IV ONE (17:02)
[2020-06-04] MEDS ORDERED: Sodium Chloride 0.9% 10 ML Syringe FLUSH PRN (17:54)
[2020-06-04] MEDS ORDERED: Levofloxacin/Dextrose 5%-Water 500 MG in Premix Bag 1 BAG IV ONE (18:00)
[2020-06-04] MEDS: Piperacillin/Tazobactam 3.375 GM in Sodium Chloride 0.9% 50 ML IV SCH (18:00)
--- NOTE | 2020-06-04 18:42 | CT ---
INDICATION: Hypotension, left abdominal pain. CT ABDOMEN AND PELVIS WITHOUT CONTRAST: Spiral 2.5 mm axial sections were obtained through the abdomen and pelvis without contrast (CT chest was not obtained at this time due to inability of the IV nurse to obtain access). Sagittal and coronary reconstructions were obtained without IV contrast 06/04/20 and compared with 10/22/18 and 05/29/20 CT abdomen and pelvis and CT pelvis respectively. Total exam DLP was 410.48 mGy-cm. The appendix is absent compatible with history of its removal. There are heavy markings at the lung bases especially in the lingula and in both lower lobes with the possibility of minimal pneumonia or pleuritis unable to be excluded in those areas. Emphysematous changes are noted in the lungs with abnormal airspaces. The heart appeared to be near the upper limits of normal in size. No pericardial effusion was seen. Calcifications are noted in the aorta, splenic, iliac and femoral arteries. Although there is slight dilatation of the distal abdominal aorta, there is no aneurysmal dilatation present. Total hip arthroplasty is noted on the right with hard beam artifact limiting detail somewhat in the lower pelvis. There are air-fluid stool levels in the colon with distension of the colon compared with the previous examination. Diverticulosis is noted in the transverse, descending, and especially the sigmoid colon with some thickening of the wall of the distal sigmoid colon raising question of a mild degree of diverticulitis. No definite peritonitis is seen. Arthur catheter appears to be in place. The gallbladder is absent compatible with history of its removal. The uterus is absent compatible with hysterectomy. The liver, spleen, and adrenals were unremarkable. The pancreas appears to be somewhat fatty replaced. No evidence of free air was noted intraperitoneally. IMPRESSION: 1. Distended colon filled with liquid stool and air with air-stool levels down to the level of the sigmoid colon where diverticulosis is most severe. There appears be some thickening of the wall in a portion of the distal sigmoid colon and possibly also in the rectosigmoid which could be on the basis of colitis and/or diverticulitis. However, no evidence of a definite abscess or peritonitis or ascites is seen. 2. Depending upon clinical correlation, direct visualization with colonoscopy may be helpful as a partially obstructive process certainly cannot be excluded of a mechanical nature at the level of the distal sigmoid-rectosigmoid area. 3. Post-hysterectomy, appendectomy, cholecystectomy. 4. Bibasilar pleural parenchymal changes may represent minimal pneumonia and pleuritis and/or fibrosis - correlate clinically. 5. Probable ASHD with bipolar pacemaker leads. 6. Total hip arthroplasty on the right. 7. ASD. Report was left on Dr. Waldron's voicemail at approximately 1818 hours. [facility]
[2020-06-04] MEDS: Sodium Chloride 0.9% 1,000 ML IV SCH (20:22)
[2020-06-04] MEDS: Ondansetron 4 MG/2 ML SDV IVPUSH PRN (20:22)
[2020-06-04] MEDS: Carboxymethylcellulose Sodium 1% Ophth Gel 15 ML Bottle EYEBOTH SCH (20:56)
[2020-06-05] MEDS: Piperacillin/Tazobactam 3.375 GM in Sodium Chloride 0.9% 50 ML IV SCH ×5 (00:15→22:46)
--- NOTE | 2020-06-05 08:22 | PCM.PN ---
- General Info Date of Service: 06/05/20 Subjective Update: Ms. Barnes had a rough night. She was noted to be hypoxic and also complains of left lower quadrant abdominal pain. She requests an enema. Blood pressures to low. Output decent. - Review of Systems General: Reports: No Symptoms HEENT: Reports: No Symptoms Pulmonary: Reports: No Symptoms Cardiovascular: Reports: No Symptoms Gastrointestinal: Reports: Abdominal Pain, Constipation Musculoskeletal: Reports: No Symptoms Neurological: Reports: No Symptoms Psychiatric: Reports: No Symptoms - Patient Data Vitals - Most Recent: Last Vital Signs Temp 98.4 F 06/05/20 06:00 Pulse 79 06/05/20 06:00 Resp 19 06/05/20 06:00 BP 85/53 L 06/05/20 06:00 Pulse Ox 93 L 06/05/20 06:00 Weight - Most Recent: 58.513 kg I&O - Last 24 Hours: Intake & Output 06/04/20 06/05/20 06/05/20 22:59 06:59 14:59 Intake Total 1730 904 Output Total 400 350 Balance 1330 554 Lab Results Last 24 Hours: Laboratory Results - last 24 hr 06/04/20 06/05/20 06/05/20 Range/Units 16:35 06:35 06:35 WBC 11.7 (4.5-12.0) X10-3/uL RBC 2.65 L (3.23-5.20) x10(6)uL Hgb 8.7 L (11.5-15.5) g/dL Hct 26.7 L (30.0-51.3) % MCV 100.7 H (80-96) fL MCH 32.7 (27.7-33.6) pg MCHC 32.5 (32.2-35.4) g/dL RDW 14.0 (11.5-15.5) % Plt Count 202 (125-369) X10(3)uL MPV 7.4 (7.4-10.4) fL Add Manual Diff Yes Neutrophils % (Manual) 77 (46-82) % Band Neutrophils % 14 H (0-6) % Lymphocytes % (Manual) 4 L (13-37) % Monocytes % (Manual) 1 L (4-12) % Eosinophils % (Manual) 1 (0-5) % Metamyelocytes % 3 H (0-0) % Sodium 132 L (135-145) mmol/L Potassium 4.7 (3.5-5.3) mmol/L Chloride 98 L (100-110) mmol/L Carbon Dioxide 25 (21-32) mmol/L BUN 44 H (7-18) mg/dL Creatinine 1.2 H (0.55-1.02) mg/dL Est Cr Clr Drug Dosing 30.93 mL/min Estimated GFR (MDRD) 43 L (>60) BUN/Creatinine Ratio 36.7 H (9-20) Glucose 102 (80-116) mg/dL Calcium 8.2 L (8.6-10.2) mg/dL C-Reactive Protein (0.5-0.9) mg/dL Urine Color Yellow (YELLOW) Urine Appearance Clear (CLEAR) Urine pH 5.0 (5.0-6.5) Ur Specific [place] 1.015 (1.010-1.025) Urine Protein Trace (NEGATIVE) mg/dL Urine Glucose (UA) Normal (NORMAL) mg/dL Urine Ketones 15 H (NEGATIVE) mg/dL Urine Occult Blood Negative (NEGATIVE) Urine Nitrite Negative (NEGATIVE) Urine Bilirubin Small H (NEGATIVE) Urine Urobilinogen 1 H (NEGATIVE) mg/dL Ur Leukocyte Esterase Small H (NEGATIVE) U Hyaline Cast (Auto) Many H (NS) Urine RBC 0-5 (0-5) Urine WBC 0-5 (0-5) Ur Squamous Epith Cells Few H (NS,R,O) Urine Bacteria Few H (NS) 06/05/20 Range/Units 06:35 WBC (4.5-12.0) X10-3/uL RBC (3.23-5.20) x10(6)uL Hgb (11.5-15.5) g/dL Hct (30.0-51.3) % MCV (80-96) fL MCH (27.7-33.6) pg MCHC (32.2-35.4) g/dL RDW (11.5-15.5) % Plt Count (125-369) X10(3)uL MPV (7.4-10.4) fL Add Manual Diff Neutrophils % (Manual) (46-82) % Band Neutrophils % (0-6) % Lymphocytes % (Manual) (13-37) % Monocytes % (Manual) (4-12) % Eosinophils % (Manual) (0-5) % Metamyelocytes % (0-0) % Sodium (135-145) mmol/L Potassium (3.5-5.3) mmol/L Chloride (100-110) mmol/L Carbon Dioxide (21-32) mmol/L BUN (7-18) mg/dL Creatinine (0.55-1.02) mg/dL Est Cr Clr Drug Dosing mL/min Estimated GFR (MDRD) (>60) BUN/Creatinine Ratio (9-20) Glucose (80-116) mg/dL Calcium (8.6-10.2) mg/dL C-Reactive Protein 37.1 H* (0.5-0.9) mg/dL Urine Color (YELLOW) Urine Appearance (CLEAR) Urine pH (5.0-6.5) Ur Specific [place] (1.010-1.025) Urine Protein (NEGATIVE) mg/dL Urine Glucose (UA) (NORMAL) mg/dL Urine Ketones (NEGATIVE) mg/dL Urine Occult Blood (NEGATIVE) Urine Nitrite (NEGATIVE) Urine Bilirubin (NEGATIVE) Urine Urobilinogen (NEGATIVE) mg/dL Ur Leukocyte Esterase (NEGATIVE) U Hyaline Cast (Auto) (NS) Urine RBC (0-5) Urine WBC (0-5) Ur Squamous Epith Cells (NS,R,O) Urine Bacteria (NS) Med Orders - Current: Current Medications Artificial Tears (Refresh Liquigel 1%) 0 ml EYEBOTH BEDTIME [facility] Last Admin: 06/04/20 20:56 Dose: 1 drop Documented by: Fluticasone Propionate (Flonase) 0 gm NASBOTH DAILY [facility] Vancomycin HCl 750 mg/ Sodium (Chloride) 250 mls @ 250 mls/hr IV Q24H [facility] Sodium Chloride (Normal Saline) 1,000 mls @ 150 mls/hr IV ASDIRECTED KEITH Last Infusion: 06/05/20 00:20 Dose: 50 mls/hr Documented by: Piperacillin Sod/Tazobactam (Sod 3.375 gm/ Sodium Chloride) 50 mls @ 100 mls/hr IV Q6H KEITH Last Admin: 06/05/20 05:37 Dose: 100 mls/hr Documented by: Levofloxacin/Dextrose (Levaquin In D5w 250 Mg/50 Ml) 50 mls @ 50 mls/hr IV Q24H [facility] Ketorolac Tromethamine (Toradol) 15 mg IVPUSH Q6H PRN PRN Reason: Breakthrough Pain Ondansetron HCl (Zofran Odt) 4 mg PO Q6H PRN PRN Reason: Nausea/Vomiting Ondansetron HCl (Zofran) 4 mg IVPUSH Q4H PRN PRN Reason: Nausea/Vomiting Last Admin: 06/04/20 20:22 Dose: 4 mg Documented by: Saccharomyces Boulardii (Florastor) 250 mg PO BID [facility] Last Admin: 06/04/20 20:57 Dose: Not Given Documented by: Sodium Chloride (Saline Flush) 10 ml FLUSH ASDIRECTED PRN PRN Reason: IV Use Vancomycin HCl (Pharmacy To Dose - Vancomycin) 1 dose .XX ASDIRECTED [facility] Discontinued Medications Acetaminophen (Tylenol Extra Strength) 1,000 mg PO ONETIME ONE Stop: 06/04/20 14:16 Last Admin: 06/04/20 14:38 Dose: 1,000 mg Documented by: Ceftriaxone Sodium (Rocephin) 2 gm IVPUSH Q24H [facility] Last Admin: 06/04/20 14:10 Dose: 2 gm Documented by: Denosumab (Prolia) 60 mg .XX ASDIRECTED [facility] Vancomycin HCl (Vancomycin 1 Gm/200 Ml In D5w) 200 mls @ 200 mls/hr IV ONETIME ONE Stop: 06/04/20 15:29 Last Admin: 06/04/20 14:11 Dose: 200 mls/hr Documented by: Sodium Chloride (Normal Saline) 1,000 mls @ 999 mls/hr IV .BOLUS ONE Stop: 06/04/20 17:21 Last Admin: 06/04/20 16:30 Dose: 999 mls/hr Documented by: Levofloxacin/Dextrose 500 mg/ (Premix) 100 mls @ 100 mls/hr IV ONETIME ONE Stop: 06/04/20 18:59 Last Admin: 06/04/20 18:39 Dose: 100 mls/hr Documented by: Iopamidol (Isovue-370 (76%)) 100 ml IV ONETIME ONE Stop: 06/04/20 17:03 Last Admin: 06/04/20 18:05 Dose: Not Given Documented by: - Exam Quality Assessment: Supplemental Oxygen General: Alert, Lethargic Neck: Supple Lungs: Crackles, Rales Cardiovascular: Regular Rate Back Exam: Normal Inspection Sepsis Event Note - Evaluation Sepsis Screening Result: No Definite Risk - Focused Exam Vital Signs: Vital Signs Temp Pulse Resp BP BP Pulse Ox 06/05/20 06:00 98.4 F 79 19 85/53 L 93 L 06/05/20 02:00 97.4 F 83 17 92/55 L 97 06/04/20 21:53 97.4 F 79 18 70/45 L 92 L Date Exam was Performed: 06/05/20 Time Exam was Performed: 08:18 - Problem List & Annotations (1) Diverticulitis SNOMED Code(s): 744156208 Code(s): K57.92 - DVTRCLI OF INTEST, PART UNSP, W/O PERF OR ABSCESS W/O BLEED Status: Acute Current Visit: Yes (2) Hospital-acquired pneumonia SNOMED Code(s): 395261953 Code(s): J18.9 - PNEUMONIA, UNSPECIFIED ORGANISM; Y95 - NOSOCOMIAL CONDITION Status: Acute Current Visit: Yes (3) Sepsis associated hypotension SNOMED Code(s): 22825736 Code(s): A41.9 - SEPSIS, UNSPECIFIED ORGANISM; I95.9 - HYPOTENSION, UNSPECIFIED Status: Acute Current Visit: Yes (4) Abdominal pain SNOMED Code(s): 77189033 Code(s): R10.9 - UNSPECIFIED ABDOMINAL PAIN Status: Acute Current Visit: Yes Qualifiers: Abdominal location: left lower quadrant Qualified Code(s): R10.32 - Left lower quadrant pain (5) Sacroiliac joint somatic dysfunction SNOMED Code(s): 366883546664 Code(s): M99.04 - SEGMENTAL AND SOMATIC DYSFUNCTION OF SACRAL REGION Status: Acute Current Visit: Yes (6) Hypoxia SNOMED Code(s): 423877365 Code(s): R09.02 - HYPOXEMIA Status: Acute Current Visit: Yes (7) Diverticulosis SNOMED Code(s): 77714307 Code(s): K57.90 - DVRTCLOS OF INTEST, PART UNSP, W/O PERF OR ABSCESS W/O BLEED Status: Acute Current Visit: No Qualifiers: Diverticulosis site: diverticulosis of large intestine (8) Hypothyroidism SNOMED Code(s): 75459658 Code(s): E03.9 - HYPOTHYROIDISM, UNSPECIFIED Status: Acute Current Visit: No Qualifiers: Hypothyroidism type: acquired Qualified Code(s): E03.9 - Hypothyroidism, unspecified (9) Rheumatoid arthritis SNOMED Code(s): 61842111 Code(s): M06.9 - RHEUMATOID ARTHRITIS, UNSPECIFIED Status: Acute Current Visit: No Qualifiers: Rheumatoid arthritis location: multiple sites Rheumatoid factor presence: with rheumatoid factor Qualified Code(s): M05.79 - Rheumatoid arthritis with rheumatoid factor of multiple sites without organ or systems involvement (10) Acetabulum fracture SNOMED Code(s): 22422631 Code(s): S32.409A - UNSP FRACTURE OF UNSP ACETABULUM, INIT FOR CLOS FX Status: Acute Current Visit: Yes (11) Palliative care status SNOMED Code(s): 089844514 Code(s): Z51.5 - ENCOUNTER FOR PALLIATIVE CARE Status: Acute Current Visit: Yes - Problem List Review Problem List Initiated/Reviewed/Updated: Yes - My Orders Last 24 Hours: My Active Orders 06/04/20 13:20 Admission Status [Patient Status] [ADT] Routine 06/04/20 14:00 Saccharomyces Boulardii [Florastor] 250 mg PO BID 06/04/20 14:15 Pharmacy to Dose - Vancomycin 1 dose .XX ASDIRECTED 06/04/20 16:00 Oxygen Therapy [RC] ASDIRECTED 06/04/20 16:12 Ondansetron [Zofran ODT] 4 mg PO Q6H PRN 06/04/20 Dinner Clear Liquid Diet [DIET] 06/04/20 16:21 Urinary Catheter Assessment [RC] QSHIFT 06/04/20 16:30 Insert Urinary Catheter [OM.PC] Q24H Sodium Chloride 0.9% [Normal Saline] 1,000 ml IV ASDIRECTED 06/04/20 16:53 Cardiac Monitoring [RC] CONTINUOUS Height and Weight [RC] DAILY Intake and Output [RC] 06,14,22 Oxygen Therapy [RC] PRN Up With Assistance [RC] ASDIRECTED VTE/DVT Education [RC] Per Unit Routine Vital Signs [RC] Q4H Ondansetron [Zofran] 4 mg IVPUSH Q4H PRN Resuscitation Status Routine 06/04/20 16:59 Ketorolac [Toradol] 15 mg IVPUSH Q6H PRN 06/04/20 17:00 Piperacillin/Tazobactam [Zosyn] 3.375 gm Sodium Chloride 0.9% [Normal Saline] 50 ml IV Q6H 06/04/20 17:54 Sodium Chloride 0.9% [Saline Flush] 10 ml FLUSH ASDIRECTED PRN 06/04/20 21:00 Carboxymethylcellulose Sodium [Refresh Liquigel 1%] 0 ml EYEBOTH BEDTIME 06/05/20 08:18 CRP [C-REACTIVE PROTEIN] [CHEM] Routine 06/05/20 09:00 Fluticasone Propionate [Flonase] 0 gm NASBOTH DAILY 06/05/20 14:30 Vancomycin 750 mg Sodium Chloride 0.9% [Normal Saline (AdvBag)] 250 ml IV Q24H 06/05/20 18:00 Levofloxacin/Dextrose 5%-Water [Levaquin in D5W 250 MG/50 ML] 50 ml IV Q24H 06/06/20 05:11 BASIC METABOLIC PANEL,BMP [CHEM] AM CBC WITH AUTO DIFF [HEME] AM - Plan Plan:: Clear liquid diet. Continue IVF at 50 cc/hr. Tripple IV abx.Consult Dr Bryant
[2020-06-05] MEDS: Fluticasone Propionate Nasal Spray 16 GM Bottle NASBOTH SCH (09:22)
[2020-06-05] MEDS: Saccharomyces Boulardii (Probiotic) 250 MG Cap PO SCH ×2 (09:24→20:39)
[2020-06-05] MEDS: Enoxaparin 30 MG/0.3 ML Syringe SUBCUT SCH (10:25)
--- NOTE | 2020-06-05 11:03 | PCM.CONS ---
H&P History of Present Illness - General Date of Service: 06/05/20 Admit Problem/Dx: Admission Diagnosis/Problem Admission Diagnosis/Problem Hip pain - History of Present Illness Initial Comments - Free Text/Narative: Pt apparently was admitted inpt from swing bed. She had some orthopedic surgery performed. Noted to have some llq abd pain. CT scan revealed diverticulitis. placed on antibiotics. Also notes some constipation as well. Had been on a fentanyl patch for post op pain as well. LEFT HIP Pain Score (Numeric/FACES): 9 - Related Data Allergies/Adverse Reactions: Allergies Allergy/AdvReac Type Severity Reaction Status Date / Time atorvastatin calcium AdvReac Pain Verified 10/24/18 08:04 [From Lipitor] Home Medications: Home Meds Azelastine [Astelin Nasal Soln] 1 inhalation JOSE CARLOS BID 05/26/20 [History] Calcium Carb/Magnesium Oxid/D3 [Calcium Magnesium + D] 1 each PO BID 05/26/20 [History] Carboxymethylcell/Hypromellose [GenTeal Moderate to Severe Ophth Gel] 1 drop OP BEDTIME 05/26/20 [History] Denosumab [Prolia] 60 mg .XX ASDIRECTED 05/26/20 [History] Fluticasone Propionate [Flonase] 2 spray NS DAILY 05/26/20 [History] Folic Acid 1 mg PO DAILY 05/26/20 [History] Furosemide [Lasix] 20 mg PO DAILY 05/26/20 [History] Lactobac/Bifidobac/Glob Pr Con [Ultra Amarilis Plus Capsule] 1 each PO BID 05/26/20 [History] Levothyroxine 75 mcg PO ACBREAKFAST 05/26/20 [History] Loperamide [Imodium AD] 2 mg PO BEDTIME 05/26/20 [History] Losartan [Cozaar] 100 mg PO DAILY 05/26/20 [History] Lutein 20 mg PO DAILY 05/26/20 [History] Methotrexate 15 mg PO MO 05/26/20 [History] Simvastatin 20 mg PO BEDTIME 05/26/20 [History] amLODIPine [Norvasc] 2.5 mg PO DAILY 05/26/20 [History] carvediloL [Coreg] 25 mg PO BID 05/26/20 [History] Past Medical History HEENT History: Reports: Impaired Vision Cardiovascular History: Reports: Arrhythmia, Automatic Implantable Cardioverter Defibrillators, Heart Failure, High Cholesterol, Hypertension, Pacemaker, SOB on Exertion Gastrointestinal History: Reports: Diverticulosis, Gastritis, GERD, Irritable Bowel Syndrome 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 History: Musculoskeletal History: Reports: Arthritis, Fracture, Osteoarthritis, RA Other Musculoskeletal History: hx R hip Neurological History: Reports: Vertigo Endocrine/Metabolic History: Reports: Hypothyroidism - Infectious Disease History Infectious Disease History: Reports: MRSA - Past Surgical History HEENT Surgical History: Reports: Cataract Surgery Other HEENT Surgeries/Procedures: bilat cataract Cardiovascular Surgical History: Reports: AICD, Pacer GI Surgical History: Reports: Appendectomy, Cholecystectomy, Colonoscopy Female Surgical History: Reports: Section, Hysterectomy, Salpingo- Oophorectomy Other Female Surgeries/Procedures: CS x 3 Musculoskeletal Surgical History: Reports: Hip Replacement Other Musculoskeletal Surgeries/Procedures:: R hip replacement Social & Family History - Family History Family Medical History: Noncontributory - Tobacco Use Smoking Status *Q: Never Smoker Second Hand Smoke Exposure: No - Caffeine Use Caffeine Use: Reports: Coffee - Recreational Drug Use Recreational Drug Use: No H&P Review of Systems - Review of Systems: Review Of Systems: See Below General: Reports: No Symptoms Pulmonary: Reports: No Symptoms Cardiovascular: Reports: No Symptoms Gastrointestinal: Reports: Abdominal Pain, Constipation Exam - Exam Exam: See Below - Vital Signs Vital Signs: Last Vital Signs Temp 97.9 F 06/05/20 09:06 Pulse 81 06/05/20 09:06 Resp 16 06/05/20 09:06 BP 88/48 L 06/05/20 09:06 Pulse Ox 96 06/05/20 09:06 Weight: 58.513 kg - Exam General: Alert, Oriented, Cooperative Lungs: Clear to Auscultation, Normal Respiratory Effort Cardiovascular: Regular Rate, Regular Rhythm GI/Abdominal Exam: Normal Bowel Sounds, Soft, Tender (llq ) - Patient Data Lab Results Last 24 hrs: Laboratory Results - last 24 hr 06/04/20 06/05/20 06/05/20 Range/Units 16:35 06:35 06:35 WBC 11.7 (4.5-12.0) X10-3/uL RBC 2.65 L (3.23-5.20) x10(6)uL Hgb 8.7 L (11.5-15.5) g/dL Hct 26.7 L (30.0-51.3) % MCV 100.7 H (80-96) fL MCH 32.7 (27.7-33.6) pg MCHC 32.5 (32.2-35.4) g/dL RDW 14.0 (11.5-15.5) % Plt Count 202 (125-369) X10(3)uL MPV 7.4 (7.4-10.4) fL Add Manual Diff Yes Neutrophils % (Manual) 77 (46-82) % Band Neutrophils % 14 H (0-6) % Lymphocytes % (Manual) 4 L (13-37) % Monocytes % (Manual) 1 L (4-12) % Eosinophils % (Manual) 1 (0-5) % Metamyelocytes % 3 H (0-0) % Sodium 132 L (135-145) mmol/L Potassium 4.7 (3.5-5.3) mmol/L Chloride 98 L (100-110) mmol/L Carbon Dioxide 25 (21-32) mmol/L BUN 44 H (7-18) mg/dL Creatinine 1.2 H (0.55-1.02) mg/dL Est Cr Clr Drug Dosing 30.93 mL/min Estimated GFR (MDRD) 43 L (>60) BUN/Creatinine Ratio 36.7 H (9-20) Glucose 102 (80-116) mg/dL Calcium 8.2 L (8.6-10.2) mg/dL C-Reactive Protein (0.5-0.9) mg/dL Urine Color Yellow (YELLOW) Urine Appearance Clear (CLEAR) Urine pH 5.0 (5.0-6.5) Ur Specific [place] 1.015 (1.010-1.025) Urine Protein Trace (NEGATIVE) mg/dL Urine Glucose (UA) Normal (NORMAL) mg/dL Urine Ketones 15 H (NEGATIVE) mg/dL Urine Occult Blood Negative (NEGATIVE) Urine Nitrite Negative (NEGATIVE) Urine Bilirubin Small H (NEGATIVE) Urine Urobilinogen 1 H (NEGATIVE) mg/dL Ur Leukocyte Esterase Small H (NEGATIVE) U Hyaline Cast (Auto) Many H (NS) Urine RBC 0-5 (0-5) Urine WBC 0-5 (0-5) Ur Squamous Epith Cells Few H (NS,R,O) Urine Bacteria Few H (NS) 07/07/20 Range/Units 06:35 WBC (4.5-12.0) X10-3/uL RBC (3.23-5.20) x10(6)uL Hgb (11.5-15.5) g/dL Hct (30.0-51.3) % MCV (80-96) fL MCH (27.7-33.6) pg MCHC (32.2-35.4) g/dL RDW (11.5-15.5) % Plt Count (125-369) X10(3)uL MPV (7.4-10.4) fL Add Manual Diff Neutrophils % (Manual) (46-82) % Band Neutrophils % (0-6) % Lymphocytes % (Manual) (13-37) % Monocytes % (Manual) (4-12) % Eosinophils % (Manual) (0-5) % Metamyelocytes % (0-0) % Sodium (135-145) mmol/L Potassium (3.5-5.3) mmol/L Chloride (100-110) mmol/L Carbon Dioxide (21-32) mmol/L BUN (7-18) mg/dL Creatinine (0.55-1.02) mg/dL Est Cr Clr Drug Dosing mL/min Estimated GFR (MDRD) (>60) BUN/Creatinine Ratio (9-20) Glucose (80-116) mg/dL Calcium (8.6-10.2) mg/dL C-Reactive Protein 37.1 H* (0.5-0.9) mg/dL Urine Color (YELLOW) Urine Appearance (CLEAR) Urine pH (5.0-6.5) Ur Specific [place] (1.010-1.025) Urine Protein (NEGATIVE) mg/dL Urine Glucose (UA) (NORMAL) mg/dL Urine Ketones (NEGATIVE) mg/dL Urine Occult Blood (NEGATIVE) Urine Nitrite (NEGATIVE) Urine Bilirubin (NEGATIVE) Urine Urobilinogen (NEGATIVE) mg/dL Ur Leukocyte Esterase (NEGATIVE) U Hyaline Cast (Auto) (NS) Urine RBC (0-5) Urine WBC (0-5) Ur Squamous Epith Cells (NS,R,O) Urine Bacteria (NS) Result Diagrams: 06/05/20 06:35 06/05/20 06:35 Sepsis Event Note - Evaluation Sepsis Screening Result: No Definite Risk - Focused Exam Vital Signs: Vital Signs Temp Pulse Resp BP Pulse Ox 06/05/20 09:06 97.9 F 81 16 88/48 L 96 06/05/20 06:00 98.4 F 79 19 85/53 L 93 L 06/05/20 02:00 97.4 F 83 17 92/55 L 97 Date Exam was Performed: 06/05/20 Time Exam was Performed: 10:59 Consult PN Assessment/Plan Procedures: Procedures ASSAY OF CK (CPK) (01/31/15) ASSAY OF CREATININE (12/16/16) ASSAY OF LACTIC ACID (10/24/18) ASSAY OF NATRIURETIC PEPTIDE (01/31/15) ASSAY OF TROPONIN QUANT (10/22/18) ASSAY THYROID STIM HORMONE (10/22/18) BLOOD TYPING SEROLOGIC ABO (10/22/18) BLOOD TYPING SEROLOGIC RH(D) (10/22/18) CARDIAC REHAB/MONITOR (08/29/15) CHEST X-RAY 1 VIEW FRONTAL (01/31/15) COMPLETE CBC AUTOMATED (05/27/20) COMPLETE CBC W/AUTO DIFF WBC (10/24/18) COMPREHEN METABOLIC PANEL (05/27/20) CREATINE MB FRACTION (01/31/15) CT ABD & PELV W/CONTRAST (10/22/18) CT ABD & PELVIS W/O CONTRAST (12/16/16) CT ANGIOGRAPHY CHEST (01/12/15) CT MAXILLOFACIAL W/O DYE (06/14/19) CT PELVIS W/O DYE (05/27/20) DRAIN/INJ JOINT/BURSA W/O US (03/31/16) DXA BONE DENSITY AXIAL (01/24/16) EGD DIAGNOSTIC BRUSH WASH (12/03/15) ELECTROCARDIOGRAM TRACING (10/22/18) EMERGENCY DEPT VISIT (05/27/20) EMERGENCY DEPT VISIT (05/27/20) EMERGENCY DEPT VISIT (10/24/18) EMERGENCY DEPT VISIT (08/02/18) EMERGENCY DEPT VISIT (05/17/17) EMERGENCY DEPT VISIT (01/31/15) EMERGENCY DEPT VISIT (01/31/15) EMERGENCY DEPT VISIT (01/12/15) EMERGENCY DEPT VISIT (01/12/15) FIBRIN DEGRADATION QUANT (01/12/15) FLUOROGUIDE FOR SPINE INJECT (04/26/15) HEMOGLOBIN (10/22/18) HYDRATE IV INFUSION ADD-ON (10/22/18) HYDRATION IV INFUSION INIT (10/22/18) INJECT SPINE LUMBAR/SACRAL (04/26/15) METABOLIC PANEL TOTAL CA (08/02/18) MRI LUMBAR SPINE W/O DYE (04/12/15) OCCULT BLOOD FECES (10/22/18) OFFICE/OUTPATIENT VISIT EST (03/31/16) OT EVAL LOW COMPLEX 30 MIN (05/27/20) PROTHROMBIN TIME (10/24/18) PT EVAL MOD COMPLEX 30 MIN (05/27/20) RBC ANTIBODY SCREEN (10/22/18) RBC SED RATE NONAUTOMATED (05/27/20) ROUTINE VENIPUNCTURE (05/27/20) SELF CARE MNGMENT TRAINING (05/27/20) THER/PROPH/DIAG INJ IV PUSH (01/31/15) THER/PROPH/DIAG INJ SC/IM (05/27/20) THERAPEUTIC ACTIVITIES (05/27/20) THROMBOPLASTIN TIME PARTIAL (10/22/18) TTE W/DOPPLER COMPLETE (09/20/19) URINALYSIS AUTO W/SCOPE (05/27/20) WHEELCHAIR MNGMENT TRAINING (05/27/20) X-RAY EXAM HIP UNI 2-3 VIEWS (05/27/20) X-RAY EXAM L-S SPINE 2/3 VWS (05/27/20) X-RAY EXAM L-S SPINE BENDING (04/12/15) X-RAY EXAM OF HIP (04/10/15) X-RAY EXAM OF PELVIS (04/10/15) (1) Diverticulitis SNOMED Code(s): 718106442 Code(s): K57.92 - DVTRCLI OF INTEST, PART UNSP, W/O PERF OR ABSCESS W/O BLEED Current Visit: Yes Problem List Initiated/Reviewed/Updated: Yes My Orders Last 24 Hours: My Active Orders 06/05/20 11:00 Ketorolac [Toradol] 15 mg IVPUSH Q6H 06/05/20 14:00 Acetaminophen [Tylenol] 1,000 mg PO TID Plan: Agree with antibiotic choice. would make toradol and tylenol scheduled. will follow with you.
[2020-06-05] MEDS: Sodium Chloride 0.9% 1,000 ML IV SCH (11:13)
[2020-06-05] MEDS: Ketorolac 15 MG/ML SDV IVPUSH SCH ×3 (11:14→22:38)
[2020-06-05] MEDS: Acetaminophen 500 MG Tab PO SCH ×2 (13:21→20:39)
[2020-06-05] MEDS ORDERED: Levofloxacin/Dextrose 5%-Water 50 ML IV SCH (18:00)
[2020-06-05] MEDS: Carboxymethylcellulose Sodium 1% Ophth Gel 15 ML Bottle EYEBOTH SCH (20:40)
[2020-06-06] MEDS: Ketorolac 15 MG/ML SDV IVPUSH SCH ×2 (04:39→10:48)
[2020-06-06] MEDS: Piperacillin/Tazobactam 3.375 GM in Sodium Chloride 0.9% 50 ML IV SCH ×2 (05:16→10:53)
[2020-06-06] MEDS: Ondansetron 4 MG/2 ML SDV IVPUSH PRN (07:59)
[2020-06-06] MEDS ORDERED: fentaNYL 100 MCG/2 ML SDV IVPUSH PRN (08:55)
[2020-06-06] MEDS: Acetaminophen 500 MG Tab PO SCH (09:16)
[2020-06-06] MEDS: Saccharomyces Boulardii (Probiotic) 250 MG Cap PO SCH (09:16)
[2020-06-06] MEDS: Fluticasone Propionate Nasal Spray 16 GM Bottle NASBOTH SCH (09:17)
[2020-06-06 10:43] VITALS: BP 116/58; PULSE 81
[2020-06-06] MEDS: Enoxaparin 30 MG/0.3 ML Syringe SUBCUT SCH (10:47)
--- NOTE | 2020-06-06 12:05 | DISCH ---
DISCHARGE DATE: 06/06/2020 REASON FOR ADMISSION: 1. Bilateral pneumonia. 2. Hypertension, possibly sepsis. 3. Diverticulitis. 4. Acetabular fracture. CONSULTATIONS: Dr. Bryant, General Surgery. BRIEF HISTORY AND HOSPITAL COURSE: An 80-year-old female initially admitted for acetabular fracture to the swing bed. Over the last 2 days, she developed hypertension and hypoxia. Her CRP has been trending upwards and she has had marked abdominal pain. She is on triple therapy, but with not much improvement. A decision was made today to transfer to [place] for further treatment. I spoke with the son, Raman, about the transfer and the patient is agreeable. I spent more than 35 minutes in the discharge of the patient. /[id number] TEENA/KIRA
== END 2020-06-06 12:05 | DRG 871 ==
LOC: FB.MS 13:25
PROVIDERS: ADMIT Family Medicine; ATTEND Family Medicine
DX: A41.9 Sepsis, unspecified organism (principal); J18.9 Pneumonia, unspecified organism; K57.32 Diverticulitis of large intestine without perforation or abscess without bleeding; M99.04 Segmental and somatic dysfunction of sacral region; Z51.5 Encounter for palliative care; E03.9 Hypothyroidism, unspecified; I95.9 Hypotension, unspecified; M05.79 Rheumatoid arthritis with rheumatoid factor of multiple sites without organ or systems involvement; Z20.828 Contact with and (suspected) exposure to other viral communicable diseases; K59.00 Constipation, unspecified; E78.00 Pure hypercholesterolemia, unspecified; I11.0 Hypertensive heart disease with heart failure; I50.9 Heart failure, unspecified; K21.9 Gastro-esophageal reflux disease without esophagitis; Z96.641 Presence of right artificial hip joint; S32.409D Unspecified fracture of unspecified acetabulum, subsequent encounter for fracture with routine healing; Z88.8 Allergy status to other drugs, medicaments and biological substances; Z79.890 Hormone replacement therapy; Z79.899 Other long term (current) drug therapy; Z95.0 Presence of cardiac pacemaker; Z98.41 Cataract extraction status, right eye; Z98.42 Cataract extraction status, left eye; Z90.49 Acquired absence of other specified parts of digestive tract
CPT/HCPCS: 36415; 51702; 74176; 80048; 81001; 85025; 86140; 99232; 99239; A9270-GY; J0696; J1650; J1885; J1956; J2405; J2543; J3010; J3370; J7030; J7050; U0002